=== PATIENT | male | born 1975 | race Caucasian/White ===

== ENCOUNTER 2023-01-12 14:27 | Emergency (ER) | payer SELFPAY | END 2023-01-12 16:05 | disposition left against medical advice (07) | LOC: HO.ED 16:02 | PROVIDERS: Emergency Provider Emergency Medicine | DX: I83.892 Varicose veins of left lower extremity with other complications (principal) ==

== ENCOUNTER 2023-01-12 20:00 | Emergency (ER) | payer SELFPAY ==
--- NOTE | 2023-01-12 20:16 | ED.GENADULT ---
HPI - General Adult General Chief complaint: Extremity Injury, Lower Stated complaint: clot? Time Seen by Provider: 01/12/23 22:00 Source: patient Mode of arrival: ambulatory Limitations: no limitations History of Present Illness HPI narrative: walking and caught left varicose vein on thorn bleeding controlled here for Tdap and wasn't sure if wound would still be bleeding as he had duct tape on it to stop it complaint: bleeding wound Onset (ago): minute(s) (prior to arrival ) Location: left and lower extremity Radiation: non-radiation Severity: mild Relieving factors: other (duct tape) Exacerbating factors: none Associated symptoms: denies other symptoms Treatments prior to arrival: other (duct tape) Related Data Allergies Allergy/AdvReac Type Severity Reaction Status Date / Time No Known Allergies Allergy Unverified 02/19/20 18:38 [No Known Allergies*] Review of Systems Review of Systems: Constitutional : No Fever, No Chills, Cardiovascular : No Chest Pain, No SOB Respiratory : No Dyspnea Gastrointestinal : No abdominal pain Musculoskeletal : No Joint Swelling Skin : No rash, positive skin laceration Neuro : No Weakness, No Numbness PMFSH Past Medical History Attestation statement: The following information was validated with the patient. Social History Social History (Updated 01/12/23 @ 22:20 by Sarah Rivas DO) Patient Tobacco Use Status: Tobacco use Unknown Physical Exam ED Vital Signs: Vital Signs - 24 hr 01/12/23 20:28 Temperature 97.9 F Pulse Rate 72 Respiratory Rate 16 Blood Pressure 125/63 Pulse Oximetry 98 Oxygen Delivery Method Room Air BMI result Body Mass Index 19.8 Appearance: Alert. Oriented X3. No acute distress. Eyes: Pupils equal, round and reactive to light. ENT: Pharynx normal. Neck: Normal inspection. CVS: Pulses normal. Respiratory: No respiratory distress. Abdomen: Soft and nontender. Skin: Skin warm and dry. Normal skin color. Extremities: No lower extremity edema. left lateral lower just near ankle small 0.5cm puncture area clotted varicose vein distal NV intact, non pulsatile Neuro: Oriented X 3. No motor deficit. No sensory deficit. Course Course Course Narrative: This is an RME: Additional HPI, ROS, PE not included below will be deferred to primary provider. Patient is a 47 year old male presenting with a laceration to his foot that he has since covered in duct tape. He reports that he was outside in the [place] and cut his foot on a thorn. He cant take the duct tape off becuase he says it will gush.. Tetanus unclear, Plan- Wound care in [facility] Medications Administered Discontinued Medications Generic Name Dose Route Start Last Admin Trade Name Colette PRN Reason Stop Dose Admin Diphtheria/Tetanus/Acell Pertussis 0.5 ml 01/12/23 20:19 01/12/23 21:58 Diphth,Pertus(Acell),Tet Adult 0.5 Ml Syringe IM 01/12/23 20:20 0.5 ml .ONCE ONE Administration Procedures Laceration Laceration 1: Site: lower extremity Side (If applicable): left Size (cm): 0.5 Description: other (small puncture) Depth: simple, single layer Pre-repair: wound explored and irrigated extensively Skin layer closed with: other (dermabond) Medical Decision Making Medical Decision Making MDM Narrative: 47 yo male was walking and thorn caught L ankle and varicose vein started to bleed he stopped it with duct tape he is doing fine now no bleeding NV intact, Tdap to be updated - at this time he will need dermabond to cover anticipate DC home. Differential Diagnosis Differential Diagnoses: The differential diagnosis associated with the presentation includes laceration, abrasion, bleeding varicose vein Discharge Plan Discharge Clinical Impression: Bleeding from varicose vein Patient Disposition: Home, Self-Care Instructions: Puncture Wound (ED) Additional Instructions: your glue will come off in 5 days monitor for redness swelling yellow drainage or swelling return for worsening symptoms bleeding or any other concerns. keep clean and dry okay to shower in 24 hours.
[2023-01-12 20:28] VITALS: BP 125/63; PULSE 72; RESP 16; TEMP 36.6; O2SAT 98; BMI 19.8
[2023-01-12] MEDS: Diphth,Pertus(ACell),Tet Adult 0.5 ML SYRINGE IM (21:58)
== END 2023-01-12 22:27 | disposition home or self-care (01) ==
PROVIDERS: Emergency Provider Emergency Medicine
DX: I83.892 Varicose veins of left lower extremity with other complications (principal); S81.812A Laceration without foreign body, left lower leg, initial encounter; W45.8XXA Other foreign body or object entering through skin, initial encounter; Y93.89 Activity, other specified; Y92.9 Unspecified place or not applicable; Y99.9 Unspecified external cause status
CPT/HCPCS: 90471; 90715; 99282; 99284

== ENCOUNTER 2023-08-13 13:13 | Inpatient (IN) | payer OTHER, SELFPAY ==
[2023-08-13] VITALS (7 sets, daily range): BP systolic 84–127; BP diastolic 52–88; PULSE 56–80; RESP 12–16; TEMP 36.4–36.6; O2SAT 96–99; BMI 18.5
--- NOTE | ~2023-08-13 | XR_ITS ---
EXAMINATION: XR CHEST CLINICAL INFORMATION: Chest pain COMPARISON: 05/25/2018 TECHNIQUE: Frontal view of the chest was obtained. FINDINGS: The lungs are chronically hyperexpanded. The emphysematous changes are seen in upper lobes (right apex worse than left apex). No pneumothorax or pleural effusion. Cardiac silhouette is normal in size. The hilar contours are normal. There is dextrocurvature of the thoracolumbar spine. No acute osseous abnormality. XR/XR chest 1V IMPRESSION: * Chronic emphysematous lung disease. * No acute cardiopulmonary abnormality.
--- NOTE | 2023-08-13 13:50 | ECG_ITS ---
Test Reason : CHEST PAIN Blood Pressure : / mmHG Vent. Rate : 079 BPM Atrial Rate : 000 BPM P-R Int : 000 ms QRS Dur : 084 ms QT Int : 424 ms P-R-T Axes : 000 083 059 degrees QTc Int : 486 ms Atrial fibrillation Nonspecific T wave abnormality Prolonged QT Abnormal ECG No previous ECGs available Referred By: Sayda Mcclelland Electronically Signed By:ABEL METCALF MD
--- NOTE | 2023-08-13 14:04 | ED_ITS ---
HPI - Psych General Chief Complaint: ETOH/Substance Use Stated Complaint: WITHDRAWAL SX,SOB 97% RA PER EMS Time Seen by Provider: 08/13/23 13:39 Source: patient and RN notes reviewed Mode of arrival: ambulatory Limitations: no limitations History of Present Illness HPI Narrative: This is a 48-year-old male, with a history of opioid use disorder on methadone, presenting to the emergency department with complaints of suicidal and homicidal ideations. Patient states that ?it has been a long time coming?. He states that over the last several years he has had increased anxiety depression. He states that this has worsened after getting into a verbal altercation with his boss today. He expressed suicidal or homicidal ideations. He states that he has thoughts of wrapping a chain around his neck and jumping off a bridge. He denies making any sort of physical attempts to end his life today. He denies any dizziness, lightheadedness, headaches, chest pain, shortness of breath, abdominal pain, nausea, vomiting or diarrhea. He also endorses auditory and visual hallucinations. He states that he does not have a history of VH/AH. He denies command hallucinations. He states that the visual hallucinations are shadows. He states that he is hearing voices. He admits to using heroin, states that he uses approximately 1 bundle per day. Denies alcohol use. He is currently on methadone, last received 70 mg this morning. No other concerns at this time. MD complaint: suicidal ideation, feels depressed, anxiety and substance abuse Onset (ago): day(s) Duration: constant History of same: Yes Relieving factors: none Exacerbating factors: none Context: significant life stressor Associated psychiatric symptoms: depression, suicidal ideation, homicidal ideation, auditory hallucinations and visual hallucinations Associated symptoms: denies other symptoms Treatments prior to arrival: none If self harm: admits thoughts of self harm and has plan Details of plan: Hanging himself with a chain and jumping off a bridge Related Data Home Medications Medication Instructions Recorded Confirmed hydroxyzine HCl 25 mg tablet 25 mg PO TID PRN anxiety 08/14/23 08/14/23 mirtazapine 15 mg tablet 15 mg PO BEDTIME 08/14/23 08/14/23 Allergies Allergy/AdvReac Type Severity Reaction Status Date / Time No Known Allergies Allergy Unverified 02/19/20 18:38 [No Known Allergies*] Review of Systems 2 Review of Systems: Yes all other systems are reviewed and are negative Constitutional: Constitutional: Reports as per [facility] Past Medical History Attestation statement: The following information was validated with the patient. Social History Social History Patient Tobacco Use Status: Tobacco use Unknown Smoked in Last 30 Days: Yes Substance Use Type: Heroin Substance Use Frequency: Chronic Longstanding Substance Use Frequency Other:: 1 Last Used Substance: Days (ago) Any prior treatment program specific to substance use: Yes Advance Directives: No Advance Directives Information Provided: No Physical Exam 2 Vital Signs: Vital Signs: Last Vital Signs Temp 97.7 F 08/14/23 06:08 Pulse 72 08/14/23 06:08 Resp 18 08/14/23 06:08 BP 131/91 H 08/14/23 06:08 Pulse Ox 98 08/14/23 06:08 O2 Del Method Room Air 08/14/23 06:08 Oxygen Flow Rate 1 08/13/23 14:00 BMI result Body Mass Index 18.5 Const: General: cooperative, comfortable and no acute distress O rientation/consciousness: patient oriented x3 Limitations: no limitations HEENT: Head: Yes normal to inspection, Yes normocephalic and Yes atraumatic Ears: hearing grossly normal bilaterally General nose exam: Normal external nose present Face and sinus: Yes normal facial exam Mouth: Normal oral and palatal mucosa present, oropharynx normal and moist mucous membranes Throat: Yes posterior oropharynx normal Eyes: General: appearance normal, both eyes and all related structures E yelids: Yes eyelids normal Conjunctivae: conjunctivae normal Sclerae: s clerae normal Pupils: Equal, round and reactive pupils present EOM: EOMs intact bilaterally Neck: Neck: Yes normal visual inspection, Yes full ROM and Yes no lymphadenopathy Lymphatic: no lymphadenopathy noted Chest: Chest palpation & inspection: normal inspection of the chest Resp: Effort & Inspection: normal respiratory effort and able to speak in complete sentences Auscultation: clear to auscultation bilaterally, no crackles, no rales, no rhonchi and no wheezes Cardio: Rate: regular rate Rhythm: regular rhythm Heart sounds: S1 normal heart sound present and S2 normal heart sound present GI: Inspection: Yes normal to inspection Skin: General skin exam: no rashes or lesions noted Trauma: no lacerations or abrasions Wounds: no wounds Neuro: General: patient oriented x3 and moves all extremities Cranial nerves: Yes CN's II-XII intact bilaterally and Yes Equal, round and reactive pupils present Cognition (Neuro): normal cognition Gait exam (Neuro): N ormal gait present Motor exam (neuro): 5/5 motor strength present throughout Extrem: General: Yes normal to inspection Right upper extremity: normal to inspection Left upper extremity: normal to inspection Right lower extremity: normal to inspection Left lower extremity: normal to inspection Psych: Appearance: disheveled Speech and movement: Slowed speech present (Psych) Affect: Labile affect present, Sad affect present and Anxious affect present Attitude: Guarded attititude/behavior present Thought process: N ormal thought process present Thought content: Suicidality present and Homicidality present Insight: Poor insight present (Psych) Judgement: Poor judgement present (Psych) Course Reevaluation(s) Reevaluation #1: Labs returned, patient has no leukocytosis, stable H&H, chemistry within normal limits. Troponin negative. U tox still pending, tested negative for flu, RSV, and COVID. Chest x-ray unremarkable. At this point his workup is unremarkable. He is stable. Will administer IV fluids, pending crisis team in care team evaluation. Time: 16:24 Reevaluation #2: Patient resting comfortably, received 1 L of IV fluids, blood pressure improved to 127/67. Patient placed in observation initiated pending crisis team evaluation. Time: 17:35 Reevaluation #3: 06:48 Physician observation continued: Patient has been in the emergency department for 17 hours and 30 minutes, patient presented with suicidal ideation and opiate withdrawal. No reported incidents on this patient by the overnight staff. Evaluated by the care team. Patient will remain in the emergency department [facility] until disposition can be determined or until patient's symptoms improve over time. Time: 06:48 Medications Administered Discontinued Medications Generic Name Dose Route Start Last Admin Trade Name Freq PRN Reason Stop Dose Admin Sodium Chloride 1,000 mls @ 999 mls/hr 08/13/23 16:22 08/13/23 18:00 Ns IV 08/13/23 17:22 Infused .Q1H1M ONE Infusion Lorazepam 2 mg 08/13/23 19:24 08/13/23 19:29 Lorazepam 1 Mg Tablet PO 08/13/23 19:25 2 mg ONCE ONE Administration Medical Decision Making Medical Decision Making [facility] Narrative: This is a 48-year-old male, with a history of atrial fibrillation, presenting to the emergency department with complaints of suicidal homicidal ideations. EMS was called initially for withdrawals, per EMS/nursing note, patient reports that he has not been sleeping well and has decreased p.o. intake. He endorses suicidal ideation of wrapping a chain around his neck and jumping off a bridge. He also endorses homicidal ideations. He states that this is exacerbated after getting into a verbal altercation with his boss. He states that over the last several days he has had visual and auditory hallucinations. He states that he is seeing shadows, and states that the voices that he is hearing are noises, denies any discernible command hallucinations. On arrival, patient mildly hypotensive at 84/52, he is alert and oriented times 4, improved to 103 over 64, will medicate with IV fluids. You will also be seen by the crisis team. EKG, chest x-ray, basic labs ordered. Differential Diagnosis Differential Diagnoses: The differential diagnosis associated with the presentation includes Suicidal ideation, homicidal ideation, anxiety, depression Admission/Observation Consideration of admission/observation: Escalation of care including admission/observation considered Lab Data [facility] Lab Attestation statement: I reviewed the patient's lab results. No leukocytosis, stable H&H, chemistry within normal limits, ethyl alcohol less than 10, negative flu, RSV, COVID 08/13/23 14:21 08/13/23 14:21 Labs: Lab Results 08/13/23 08/13/23 08/13/23 Range/Units 14:21 14:27 14:31 WBC 7.1 (4.8-10.8) X10*3/uL RBC 3.99 L (4.60-5.80) X10*6/uL Hgb 11.5 L (14.0-18.0) g/dl Hct 34.4 L (42.0-52.0) % MCV 86.2 (80.0-98.0) fL MCH 28.8 (27.0-33.0) pg MCHC 33.4 (31.0-36.0) g/dl RDW 12.6 (11.0-16.0) % Plt Count 251 (160-400) X10*3/uL MPV 9.3 L (9.4-12.4) fL Immature Gran % (Auto) 0.7 H (0.0-0.4) % Neut % (Auto) 54.0 (45-73) % Lymph % (Auto) 32.3 (20-40) % [place] % (Auto) 9.5 (2-11) % Eos % (Auto) 3.4 (0-4) % Baso % (Auto) 0.1 (0-2) % Lymph # (Auto) 2.3 (1.2-4.9) X10*3/uL [place] # (Auto) 0.7 (0.1-1.2) X10*3/uL Eos # (Auto) 0.2 (0.0-0.4) X10*3/uL Baso # (Auto) 0.0 (0.0-0.2) X10*3/uL Abs Immat Gran (auto) 0.05 H (0.00-0.03) X10*3/uL Absolute Neuts (auto) 3.8 (2.0-8.3) x10*3/uL Absolute Nucleated RBC 0.000 (0.0-0.012) X10*3/uL Nucleated RBC % (auto) 0.0 (0.0-0.2) /100WBC PT 11.5 (11.1-13.3) SEC INR 0.9 (0.9-1.1) APTT 32.1 (26.0-36.8) SEC Sodium 141 (135-145) mmol/L Potassium 4.0 (3.3-5.1) mmol/L Chloride 108 (96-108) mmol/L Carbon Dioxide 26 (22-29) mmol/L Anion Gap 11 L (12-20) BUN 19 H (9-16) mg/dL Creatinine 0.80 (0.5-1.4) mg/dL Estim Creat Clear Calc 99.5 Estimated GFR > 60 Random Glucose 99 (60-115) mg/dL Lactic Acid 1.0 (0.5-2.0) mmol/L Calcium 8.6 (8.4-10.2) mg/dL Magnesium 1.9 (1.6-2.6) mg/dL Total Bilirubin 0.2 (0.0-1.0) mg/dL AST 10 (5-37) U/L ALT 9 (0-40) U/L Alkaline Phosphatase 70 (39-117) U/L Troponin I High Sens < 2.7 (<3.5-35.0) ng/L Total Protein 5.6 L (6.5-8.0) g/dL Albumin 3.5 (3.5-5.0) g/dL Lipase 8 (8-78) U/L Urine Opiates Screen (Not Detect) Urine Fentanyl Screen (Not Detect) Ur Barbiturates Screen (Not Detect) Ur Phencyclidine Scrn (Not Detect) Ur Amphetamines Screen (Not Detect) U Benzodiazepines Scrn (Not Detect) Urine Cocaine Screen (Not Detect) U Marijuana (THC) Screen (Not Detect) Ethyl Alcohol < 10 mg/dL Influenza Type A (PCR) NEGATIVE (Negative) Influenza Type B (PCR) NEGATIVE (Negative) RSV RNA Qual (PCR) NEGATIVE (Negative) SARS-CoV-2 RNA (RT-PCR) NEGATIVE (Negative) 08/13/23 Range/Units 16:19 WBC (4.8-10.8) X10*3/uL RBC (4.60-5.80) X10*6/uL Hgb (14.0-18.0) g/dl Hct (42.0-52.0) % MCV (80.0-98.0) fL MCH (27.0-33.0) pg MCHC (31.0-36.0) g/dl RDW (11.0-16.0) % Plt Count (160-400) X10*3/uL MPV (9.4-12.4) fL Immature Gran % (Auto) (0.0-0.4) % Neut % (Auto) (45-73) % Lymph % (Auto) (20-40) % [place] % (Auto) (2-11) % Eos % (Auto) (0-4) % Baso % (Auto) (0-2) % Lymph # (Auto) (1.2-4.9) X10*3/uL [place] # (Auto) (0.1-1.2) X10*3/uL Eos # (Auto) (0.0-0.4) X10*3/uL Baso # (Auto) (0.0-0.2) X10*3/uL Abs Immat Gran (auto) (0.00-0.03) X10*3/uL Absolute Neuts (auto) (2.0-8.3) x10*3/uL Absolute Nucleated RBC (0.0-0.012) X10*3/uL Nucleated RBC % (auto) (0.0-0.2) /100WBC PT (11.1-13.3) SEC INR (0.9-1.1) APTT (26.0-36.8) SEC Sodium (135-145) mmol/L Potassium (3.3-5.1) mmol/L Chloride (96-108) mmol/L Carbon Dioxide (22-29) mmol/L Anion Gap (12-20) BUN (9-16) mg/dL Creatinine (0.5-1.4) mg/dL Estim Creat Clear Calc Estimated GFR Random Glucose (60-115) mg/dL Lactic Acid (0.5-2.0) mmol/L Calcium (8.4-10.2) mg/dL Magnesium (1.6-2.6) mg/dL Total Bilirubin (0.0-1.0) mg/dL AST (5-37) U/L ALT (0-40) U/L Alkaline Phosphatase (39-117) U/L Troponin I High Sens (<3.5-35.0) ng/L Total Protein (6.5-8.0) g/dL Albumin (3.5-5.0) g/dL Lipase (8-78) U/L Urine Opiates Screen POSITIVE H (Not Detect) Urine Fentanyl Screen POSITIVE H (Not Detect) Ur Barbiturates Screen Not Detected (Not Detect) Ur Phencyclidine Scrn Not Detected (Not Detect) Ur Amphetamines Screen Not Detected (Not Detect) U Benzodiazepines Scrn Not Detected (Not Detect) Urine Cocaine Screen POSITIVE H (Not Detect) U Marijuana (THC) Screen POSITIVE H (Not Detect) Ethyl Alcohol mg/dL Influenza Type A (PCR) (Negative) Influenza Type B (PCR) (Negative) RSV RNA Qual (PCR) (Negative) SARS-CoV-2 RNA (RT-PCR) (Negative) Independent Interpretation I performed an independent interpretation of an: EKG Interpretation: EKG revealing atrial fibrillation with ventricular rate of 79 beats per minute, QTC 486. No ST elevation or depression. Radiology Impression Discussion of test interpretation with radiology: I have reviewed the radiologist's reading. External Record Review External record reviewed: Inpatient record, Office record, Outpatient record, Prior outpatient labs, Prior outpatient radiology, Primary care record and Outside ED record Discharge Plan Discharge Clinical Impression: Suicide ideation, Narcotic withdrawal Patient Disposition: Still a Patient Prescriptions: No Action hydroxyzine HCl 25 mg tablet 25 mg PO TID PRN (Reason: anxiety) mirtazapine 15 mg tablet 15 mg PO BEDTIME
[2023-08-13 14:29] LABS: MANUAL DIFF FLAG NO
[2023-08-13 14:31] LABS: Basophils Percent Auto 0.1 % (0-2); Eosinophils Absolute Auto 0.2 X10*3/uL (0.0-0.4); Eosinophils Percent Auto 3.4 % (0-4); Hematocrit 34.4 % (42.0-52.0); Hemoglobin 11.5 g/dl (14.0-18.0); Imm Gran Abs Auto 0.05 X10*3/uL (0.00-0.03); Imm Gran Pct Auto 0.7 % (0.0-0.4); Lymphocytes Absolute Auto 2.3 X10*3/uL (1.2-4.9); Lymphocytes Percent Auto 32.3 % (20-40); Mean Corpuscular HGB Conc 33.4 g/dl (31.0-36.0); Mean Corpuscular Hemoglobin 28.8 pg (27.0-33.0); Mean Corpuscular Volume 86.2 fL (80.0-98.0); Mean Platelet Volume 9.3 fL (9.4-12.4); Monocytes Absolute Auto 0.7 X10*3/uL (0.1-1.2); Monocytes Percent Auto 9.5 % (2-11); Neutrophils Absolute Auto 3.8 x10*3/uL (2.0-8.3); Platelet Count 251 X10*3/uL (160-400); Red Blood Count 3.99 X10*6/uL (4.60-5.80); Red Cell Distribution Width 12.6 % (11.0-16.0); White Blood Count 7.1 X10*3/uL (4.8-10.8)
--- NOTE | 2023-08-13 14:44 | PC.NURSE ---
jie ruvalcaba aware ciwa 6 cows 1 and positive screen for feeling unsafe in environment. 1:1 sitter at bedside r/t passive SI at thsi time w plan earlier this am- jie ruvalcaba aware
[2023-08-13 14:50] LABS: Alanine Aminotransferase 9 U/L (0-40); Albumin Level 3.5 g/dL (3.5-5.0); Alkaline Phosphatase 70 U/L (39-117); Anion Gap 11 (12-20); Aspartate Amino Transferase 10 U/L (5-37); Bilirubin Total 0.2 mg/dL (0.0-1.0); Blood Urea Nitrogen 19 mg/dL (9-16); Calcium 8.6 mg/dL (8.4-10.2); Carbon Dioxide 26 mmol/L (22-29); Chloride 108 mmol/L (96-108); Creatinine Clr Calc Pharmacy 99.5; Estimated Glomerular Filt Rate > 60; Ethanol < 10 mg/dL; Glucose Random 99 mg/dL (60-115); Lipase 8 U/L (8-78); Magnesium 1.9 mg/dL (1.6-2.6); Sodium 141 mmol/L (135-145); Total Protein 5.6 g/dL (6.5-8.0)
[2023-08-13 14:58] LABS: Troponin-I High Sensitivity < 2.7 ng/L (<3.5-35.0)
[2023-08-13 15:00] LABS: INTERNATIONAL NORM RATIO 0.9 (0.9-1.1); Prothrombin Time 11.5 SEC (11.1-13.3)
[2023-08-13 15:03] LABS: Partial Thromboplastin Time 32.1 SEC (26.0-36.8)
[2023-08-13 15:28] LABS: Influenza A PCR NEGATIVE (Negative); Influenza B PCR NEGATIVE (Negative); Resp Syncy Virus RNA Qual PCR NEGATIVE (Negative); SARS COV2 PCR INHOUSE NEGATIVE (Negative)
[2023-08-13 16:36] LABS: Amphetamine Screen Urine Not Detected (Not Detect); Barbiturates, Urine Not Detected (Not Detect); Benzodiazepines Screen Urine Not Detected (Not Detect); Cannabinoid Screen Urine POSITIVE (Not Detect); Cocaine Screen Urine POSITIVE (Not Detect); Fentanyl, urine POSITIVE (Not Detect); Opiate Screen Urine POSITIVE (Not Detect); Phencyclidine Screen Urine Not Detected (Not Detect)
[2023-08-13] MEDS: 0.9 % Sodium Chloride 1,000 ML 999 ML IV (16:36)
[2023-08-13] MEDS: LORazepam 1 MG TABLET 2 MG PO (19:29)
--- NOTE | 2023-08-13 20:14 | MHC.EDTECH ---
patient belongings in [facility]
[2023-08-14 06:08] VITALS: BP 131/91; PULSE 72; RESP 18; TEMP 36.5; O2SAT 98
[2023-08-14 08:25] LABS: Appearance Urine Clear; Color Urine Yellow; Glucose Urine UA Negative (Negative); Leukocyte Esterase Urine Negative (Negative); Nitrite Urine Negative (Negative); PH 5.5 (5.0-9.0); Urine Blood Negative (Negative); Urine Ketones Negative (Negative); Urine Protein Negative (Neg-Trace)
--- NOTE | 2023-08-14 12:45 | PC.NURSE ---
Nurse to nurse given to M5 RN
[2023-08-14 13:15] VITALS: BP 116/71; PULSE 84; RESP 16; TEMP 36.3; O2SAT 98
--- NOTE | 2023-08-14 13:30 | PC.NURSE ---
pt arrived to the unit via wheelchair on a CV. Skin check performed, vitals taken, pt [id number] to unit and menu, legals, valuables & human rights forms completed. Pt is resting comfortably. Admission to be complete
--- NOTE | 2023-08-14 14:35 | PC.NURSE ---
pt refused flu shot
--- NOTE | 2023-08-14 14:41 | PC.NURSE ---
pt arrived on the unit on a cv via wheelchair @ 1311. Safety search & vitals completed. Pt oriented to unit and paperwork completed. Pt has belongings in . Per crisis nicolás, is a 48 year old, single, White, [place] speaking male seen today by the CARE team at [facility] ED after pt was BIBA due to opiate withdrawal related symptoms and SI. Pt reports escalated conflict at work. He also described increased symptoms of depression and anxiety. Pt is currently endorsing SI with no plan and HI to harm his boss. Pt is unable to contract for safety at this time. Pt has no prior history of inpatient psychiatric hospitalizations and denies any prior suicide attempts. Currently, pt has no mental health treatment providers in the community. He also reports limited natural supports. Pt expressed feelings of hopelessness and helplessness. Pt placed on 15min checks for safety. Pt also reports receiving methadone 70mg @ N which was verified via nursing @ [facility]. Last dose received 08/13/23 @ 0735 70mg
[2023-08-14] MEDS: methADONE HCl 20 MG/2 ML ORAL.CONC 70 MG PO (15:26)
[2023-08-14] MEDS: Mirtazapine 15 MG TABLET PO (21:51)
--- NOTE | 2023-08-15 | ECG_ITS ---
Test Reason : AFIB F/U Blood Pressure : / mmHG Vent. Rate : 076 BPM Atrial Rate : 000 BPM P-R Int : 000 ms QRS Dur : 078 ms QT Int : 380 ms P-R-T Axes : 000 086 067 degrees QTc Int : 427 ms Poor data quality, interpretation may be adversely affected Atrial fibrillation Cannot rule out Anterior infarct , age undetermined Abnormal ECG When compared with ECG of 13-AUG-2023 14:11, QT has shortened Referred By: Jessica Jose Electronically Signed By:ABEL METCALF MD
[2023-08-15 07:57] VITALS: BP 136/91; PULSE 79; RESP 16; TEMP 36.4; O2SAT 98
[2023-08-15] MEDS: methADONE HCl 20 MG/2 ML ORAL.CONC 70 MG PO (08:07)
[2023-08-15 08:59] LABS: Albumin Level 3.5 g/dL (3.5-5.0); Alkaline Phosphatase 75 U/L (39-117); Anion Gap 10 (12-20); Aspartate Amino Transferase 9 U/L (5-37); Bilirubin Total 0.6 mg/dL (0.0-1.0); Blood Urea Nitrogen 14 mg/dL (9-16); Carbon Dioxide 30 mmol/L (22-29); Chloride 104 mmol/L (96-108); Cholesterol 122 mg/dL (<200); Creatinine Clr Calc Pharmacy 95.9; Estimated Glomerular Filt Rate > 60; Glucose Fasting 98 mg/dL (60-99); HDL Cholesterol 42 mg/dL (>40); LDL Cholesterol Calculated 64 mg/dL (<100); Potassium 4.6 mmol/L (3.3-5.1); Sodium 139 mmol/L (135-145); Total Protein 6.1 g/dL (6.5-8.0); Triglycerides 80 mg/dL (<150)
[2023-08-15 09:24] LABS: Alanine Aminotransferase 10 U/L (0-40)
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
[2023-08-15 18:00] VITALS: BP 123/78; PULSE 76; RESP 16; TEMP 36.4; O2SAT 97
[2023-08-15] MEDS: Mirtazapine 15 MG TABLET PO (21:32)
[2023-08-16 08:00] VITALS: BP 116/67; PULSE 76; RESP 16; TEMP 36.3; O2SAT 99
[2023-08-16] MEDS: methADONE HCl 20 MG/2 ML ORAL.CONC 70 MG PO (08:50)
[2023-08-16] MEDS: Thiamine HCL 100 MG TABLET PO (08:52)
[2023-08-16] MEDS: Multivitamin TABLET 1 TAB PO (08:52)
[2023-08-16] MEDS: Folic Acid 1 MG TABLET PO (08:52)
[2023-08-16 08:59] LABS: Iron 84 mcg/dL (45-160); Magnesium 1.8 mg/dL (1.6-2.6); Percent Iron Saturation 32 % (15-50); Total Iron Binding Capacity 266 mcg/dL (228-428); Unsaturated Iron Binding 182 ug/dL
[2023-08-16 09:14] LABS: TSH reflex Free T4 1.12 uIU/mL (0.32-4.0); Thyroid Stimulating Hormone 1.02 uIU/mL (0.32-4.0); Vitamin D 25-OH Total 21.6 ng/mL (>30)
[2023-08-16 12:17] LABS: Folate 9.8 ng/mL (> or = 4.0); Vitamin B12 362 pg/mL (200-900)
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
[2023-08-16 13:35] VITALS: BMI 18.4
[2023-08-16 18:00] VITALS: BP 98/68; PULSE 72; RESP 18; TEMP 36.6; O2SAT 98
[2023-08-16] MEDS: Mirtazapine 15 MG TABLET PO (21:27)
[2023-08-17 08:06] VITALS: BP 133/61; PULSE 80; RESP 16; TEMP 36.3; O2SAT 100
[2023-08-17] MEDS: Multivitamin TABLET 1 TAB PO (08:15)
[2023-08-17] MEDS: Sertraline HCL 25 MG TABLET PO (08:15)
[2023-08-17] MEDS: Thiamine HCL 100 MG TABLET PO (08:15)
[2023-08-17] MEDS: methADONE HCl 20 MG/2 ML ORAL.CONC 70 MG PO (08:16)
[2023-08-17] MEDS: Folic Acid 1 MG TABLET PO (08:16)
--- NOTE | 2023-08-17 10:31 | P.CONCA_ITS ---
History of Present Illness History of Present Illness Date of Service: 08/17/23 Requesting physician: Jessica Jose Consult reason: atrial fibrillation Chief complaint: crisis Narrative: I was consulted to see Andrez in cardiology consultation for management of atrial fibrillation. Andrez is a 48-year-old male, says he was told that he had atrial fibrillation about 20 years ago by a production helper in [place] who has since retired. He was never offered rhythm management as per him. Never underwent a synchronized cardioversion. He was seen for about a year and then subsequently discharged. He said he has ever since he has been atrial fibrillation that he is aware of. He comes in for behavioral health crisis and is admitted and was noted on EKG to have atrial fibrillation. He has currently not on any medications. He said ever since he has been diagnose he has had no symptoms related to atrial fibrillation. There has been no change in his overall exercise capacity. He continues to remain active and works in [employer] shop. Although recent stressors he could not handle any came to the hospital. Remains in rate control atrial fibrillation. Blood pressure is stable. He has currently not on any medications. Denies any palpitations, lightheadedness, syncope. Denies any shortness of breath, orthopnea, PND, leg edema. Denies any exertional chest pain. 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 Do you presently have visiting nurse or other home services: No Patient Tobacco Use Status: Current everyday Tobacco user Tobacco use type: Cigarette Cigarette Packs Per Day: 1 Cigarettes Per Day: 20.0 Years Smoked: 30 Smoked in Last 30 Days: Yes Patient Interested in Nicotine Replacement: Yes Patient Given Instructions on How to Stop Smoking: No (to be given by respiratory) Second Hand Smoke Exposure: Yes Use of substances other than those prescribed or required for medical reasons: Yes Substance Use Type: Crack/Cocaine, Heroin and Marijuana Substance Use Frequency: Chronic Longstanding Substance Use Frequency Other:: 1 Last Used Substance: Days (ago) Last Used Substance Other:: cocaine and heroin Currently Displaying Signs/Symptoms of Drug Intoxication Withdrawal: No Any prior treatment program specific to substance use: Yes (currently on methadone 70mg) Have you been hit, kicked, punched, or otherwise hurt by someone within the past year? If so, by whom?: No Do you feel safe in your current relationship?: No Current Relationship Is there a partner from a previous relationship who is making you feel unsafe now?: No Are you made to feel afraid or neglected: No Advance Directives: No Advance Directives Information Provided: No Do you have thoughts of harming others: None Do you have a plan to hurt others: No Plan Recently lost weight without trying: No Eating poorly because of decreased appetite: Yes Poor oral hygiene: Yes service: No Sexual orientation: Decline to Answer Meds Allergies Allergy/AdvReac Type Severity Reaction Status Date / Time No Known Allergies Allergy Unverified 02/19/20 18:38 [No Known Allergies*] Active Medications: Current Medications Acetaminophen (Acetaminophen 325 Mg Tablet) 650 mg PO Q6H PRN PRN Reason: Headache/Pain Mild Scale (1-3) Al Hydroxide/Mg Hydroxide (Magnesium Hydrox/Alum Hydrox 30 Ml Oral.Susp) 30 ml PO Q6H PRN PRN Reason: Heartburn/Nausea Folic Acid (Folic Acid 1 Mg Tablet) 1 mg PO DAILY [facility] Last Admin: 08/17/23 08:16 Dose: 1 mg Hydroxyzine HCl (Hydroxyzine Hcl 25 Mg Tablet) 25 mg PO TID PRN PRN Reason: anxiety Magnesium Hydroxide (Milk Of Magnesia 30 Ml Oral.Susp) 30 ml PO DAILY PRN PRN Reason: Constipation Methadone HCl (Methadone Hcl 20 Mg/2 Ml Oral.Conc) 70 mg PO DAILY [facility] Last Admin: 08/17/23 08:16 Dose: 70 mg Mirtazapine (Mirtazapine 15 Mg Tablet) 15 mg PO BEDTIME [facility] Last Admin: 08/16/23 21:27 Dose: 15 mg Multivitamins/Vitamin C (Multivitamin Tablet) 1 tab PO DAILY [facility] Last Admin: 08/17/23 08:15 Dose: 1 tab Nicotine Polacrilex (Nicotine Polacrilex 2 Mg Gum) 4 mg BUCCAL Q2H PRN PRN Reason: Nicotine Cravings Sertraline HCl (Sertraline Hcl 25 Mg Tablet) 25 mg PO DAILY [facility] Last Admin: 08/17/23 08:15 Dose: 25 mg Thiamine HCl (Thiamine Hcl 100 Mg Tablet) 100 mg PO DAILY [facility] Last Admin: 08/17/23 08:15 Dose: 100 mg Trazodone HCl (Trazodone Hcl 50 Mg Tablet) 50 mg PO BEDTIME MRX1 PRN PRN Reason: Insomnia Home Medications Medication Instructions Recorded Confirmed Last Taken Type hydroxyzine HCl 25 mg tablet 25 mg PO TID PRN anxiety 08/14/23 08/14/23 Unknown History mirtazapine 15 mg tablet 15 mg PO BEDTIME 08/14/23 08/14/23 Unknown History Physical Exam 2 Vital Signs: Vital Signs: Last Vital Signs Temp 97.3 F 08/17/23 08:06 Pulse 80 08/17/23 08:06 Resp 16 08/17/23 08:06 BP 133/61 08/17/23 08:06 Pulse Ox 100 08/17/23 08:06 O2 Del Method Room Air 08/17/23 08:06 Oxygen Flow Rate 1 08/13/23 14:00 BMI result Body Mass Index 18.4 Const: General: cooperative, comfortable, no acute distress, alert, awake and Physically active Nutritional Appearance: underweight O rientation/consciousness: patient oriented x3 Limitations: no limitations HEENT: Head: Yes normocephalic and Yes atraumatic Neck: Neck: Yes trachea midline, Yes supple and Yes no JVD Resp: Effort & Inspection: normal respiratory effort Auscultation: clear to auscultation bilaterally Cardio: Jugular venous distension: no JVD Rate: regular rate Rhythm: a bnormal rhythm irregularly irregular Heart sounds: S1 normal heart sound present, S2 normal heart sound present, no click, no gallops, no murmurs and no rubs GI: Auscultation: normal bowel sounds Skin: General skin exam: no rashes or lesions noted Neuro: General: patient oriented x3 and no focal motor deficits Extrem: General: Yes no clubbing, cyanosis or edema Psych: Appearance: grossly normal Objective Labs and Meds 08/13/23 14:21 08/15/23 08:36 Lab results: Laboratory Results - last 24 hr 08/16/23 08:25 Vitamin B12 362 Folate 9.8 EKG shows atrial fibrillation with controlled ventricular response Assessment and Plan (1) Persistent atrial fibrillation: Status: Acute Patient says that he has had atrial fibrillation with 20 years, chronic persistent. He has no symptoms at this point time. Rate is adequately controlled. No signs or symptoms of congestive heart failure. Given longstanding atrial fibrillation probably has significant left atrial enlargement. This will need to be studied with an echocardiogram. Although workup can be done as outpatient once patient is cleared from Behavioral Health perspective and is able to manage his own medical condition. I discussed with him that lot of his management would contradict with his substance abuse disorder especially alcohol and cocaine use. He shows understanding. At this point time given his CHADSVASc score of 0 and no symptoms related to atrial fibrillation or signs of cardiac decompensation continue with current management. Will sign of the case. Was discharged patient can be advised to follow-up with cardiology clinic. Procedures Date of Service Date of Service: 08/17/23
--- NOTE | 2023-08-17 12:41 | MHC.RECOVRN ---
Addendum entered by Emmanuelle Herrera 08/17/23 12:41: Correction-Sunday08/20/23 Original Note: Addiction Medicine consult received. Consulting Marine Engineer to meet with pt Thursday 10/19.
[2023-08-17] MEDS: Cyclobenzaprine HCl 5 MG TABLET PO ×2 (13:52→21:35)
--- NOTE | 2023-08-17 14:36 | P.PNPSI_ITS ---
Subjective Subjective Date of Service: 08/17/23 Reason For Visit: crisis Subjective Notes: Conditional Voluntary Healthcare Proxy: No Guardianship: No Medical Problems Affecting Mental Status: Yes (afib) Interim History: Pt seen by cardiology which is much appreciated. He plans to follow up with out pt recommendations upon discharge. I need to start taking care of myself. Sertraline initiated. Flexeril initiated for back pain. Pt social with peers and in the milieu. Spent time sleeping this afternoon. Medication Compliance: Yes Side effects from medications: No Attending Groups: Intermittent Review of Systems Acute medical concerns: Yes AFib Medical Review of Systems: unchanged Review of Systems Review of Systems Yes all other systems are reviewed and are negative Mental Status Exam Mental Status Exam Patient Appearance: Fatigued Patient Orientation: Person, Place, Time and Situation Level of Consciousness: Alert Patient Behavior: Talkative and Good Eye Contact Mood Description: Depressed Affect Description: Flat Patient Cognition Impaired: No Ability to Follow Directions: Good Speech Pattern: Spontaneous Speech Memory Description: Intact Delusions: Not Present Perceptual Disturbances: Depersonalization and Derealization Thought Process: Rumination Thought Content: positive for Circumstantial and positive for Suicidal Ideation (denies today) Depressive Symptoms: Feelings of Worthlessness, Hopelessness and Low Self Esteem Judgement: Fair Diagnostics Vital Signs (24Hr): Vital Signs - 24 hr 08/16/23 18:00 08/17/23 08:06 Temperature 97.8 F 97.3 F Pulse Rate 72 80 Respiratory Rate 18 16 Blood Pressure 98/68 133/61 Pulse Oximetry 98 100 Oxygen Delivery Method Room Air Room Air BMI result Body Mass Index 18.4 Labs 08/13/23 14:21 08/15/23 08:36 Labs: Laboratory Results - last 48 hr 08/16/23 08/16/23 08:25 08:25 Magnesium 1.8 Iron 84 TIBC 266 % Saturation 32 Unsat Iron Binding 182 Vitamin B12 362 25-OH Vitamin D Total 21.6 L Folate 9.8 TSH 1.02 1.12 Imaging Radiology Impressions: ITS Impressions Chest X-Ray 08/13/23 14:47 IMPRESSION: * Chronic emphysematous lung disease. * No acute cardiopulmonary abnormality. Medications Medications Current Medications Acetaminophen (Acetaminophen 325 Mg Tablet) 650 mg PO Q6H PRN PRN Reason: Headache/Pain Mild Scale (1-3) Al Hydroxide/Mg Hydroxide (Magnesium Hydrox/Alum Hydrox 30 Ml Oral.Susp) 30 ml PO Q6H PRN PRN Reason: Heartburn/Nausea Cyclobenzaprine HCl (Cyclobenzaprine Hcl 5 Mg Tablet) 5 mg PO TID PRN PRN Reason: back pain Last Admin: 08/17/23 13:52 Dose: 5 mg Folic Acid (Folic Acid 1 Mg Tablet) 1 mg PO DAILY [facility] Last Admin: 08/17/23 08:16 Dose: 1 mg Hydroxyzine HCl (Hydroxyzine Hcl 25 Mg Tablet) 25 mg PO TID PRN PRN Reason: anxiety Magnesium Hydroxide (Milk Of Magnesia 30 Ml Oral.Susp) 30 ml PO DAILY PRN PRN Reason: Constipation Methadone HCl (Methadone Hcl 20 Mg/2 Ml Oral.Conc) 70 mg PO DAILY [facility] Last Admin: 08/17/23 08:16 Dose: 70 mg Mirtazapine (Mirtazapine 15 Mg Tablet) 15 mg PO BEDTIME [facility] Last Admin: 08/16/23 21:27 Dose: 15 mg Multivitamins/Vitamin C (Multivitamin Tablet) 1 tab PO DAILY [facility] Last Admin: 08/17/23 08:15 Dose: 1 tab Nicotine Polacrilex (Nicotine Polacrilex 2 Mg Gum) 4 mg BUCCAL Q2H PRN PRN Reason: Nicotine Cravings Sertraline HCl (Sertraline Hcl 25 Mg Tablet) 25 mg PO DAILY [facility] Last Admin: 08/17/23 08:15 Dose: 25 mg Thiamine HCl (Thiamine Hcl 100 Mg Tablet) 100 mg PO DAILY [facility] Last Admin: 08/17/23 08:15 Dose: 100 mg Trazodone HCl (Trazodone Hcl 50 Mg Tablet) 50 mg PO BEDTIME MRX1 PRN PRN Reason: Insomnia Allergies Allergies Allergy/AdvReac Type Severity Reaction Status Date / Time No Known Allergies Allergy Unverified 02/19/20 18:38 [No Known Allergies*] Assessment & Plan Assessment & Plan (1) Persistent atrial fibrillation: Status: Acute Code(s): I48.19 - Other persistent atrial fibrillation Assessment and Plan: Patient says that he has had atrial fibrillation with 20 years, chronic persistent. He has no symptoms at this point time. Rate is adequately controlled. No signs or symptoms of congestive heart failure. Given longstanding atrial fibrillation probably has significant left atrial enlargement. This will need to be studied with an echocardiogram. Although workup can be done as outpatient once patient is cleared from Behavioral Health perspective and is able to manage his own medical condition. I discussed with him that lot of his management would contradict with his substance abuse disorder especially alcohol and cocaine use. He shows understanding. At this point time given his CHADSVASc score of 0 and no symptoms related to atrial fibrillation or signs of cardiac decompensation continue with current management. Will sign of the case. Was discharged patient can be advised to follow-up with cardiology clinic. (2) Recurrent major depression: Status: Acute Code(s): F33.9 - Major depressive disorder, recurrent, unspecified Assessment and Plan: Sertraline initiated 08/16/24. (3) Opioid use disorder, severe, on maintenance therapy: Status: Acute Code(s): F11.20 - Opioid dependence, uncomplicated Assessment and Plan: Pt considering CSS placement upon discharge (4) Cocaine use disorder: Status: Acute Code(s): F14.10 - Cocaine abuse, uncomplicated Informed Consent: understands Reason for continued inpatient stay Substantial Risk for: med/psych decompensation Time Spent With Patient Time: Total time managing care of this patient today ____ minutes.
[2023-08-17 18:00] VITALS: BP 96/52; PULSE 84; RESP 18; TEMP 36.5; O2SAT 98
[2023-08-17] MEDS: hydrOXYzine HCL 25 MG TABLET PO (21:35)
[2023-08-17] MEDS: traZODone HCL 50 MG TABLET PO (21:35)
[2023-08-17] MEDS: Mirtazapine 15 MG TABLET PO (21:35)
[2023-08-18 08:05] VITALS: BP 119/74; PULSE 89; RESP 18; TEMP 35.9; O2SAT 96
[2023-08-18] MEDS: Sertraline HCL 25 MG TABLET PO (08:30)
[2023-08-18] MEDS: Thiamine HCL 100 MG TABLET PO (08:30)
[2023-08-18] MEDS: Folic Acid 1 MG TABLET PO (08:30)
[2023-08-18] MEDS: Multivitamin TABLET 1 TAB PO (08:30)
[2023-08-18] MEDS: methADONE HCl 20 MG/2 ML ORAL.CONC 70 MG PO (08:31)
--- NOTE | 2023-08-18 08:48 | HO.PSYCHPN ---
Subjective Subjective Date of Service: 08/18/23 Reason For Visit: crisis Subjective Notes: Conditional Voluntary Interim History: Patient was seen and discussed in rounds today. Records and plans were reviewed. He was seen by camp attendant for AFib and outpatient recommendations have been made. He continues to complain of ?my back acting out again?. He has been started on Flexeril and hopefully it will help. He has not scoring for opiate withdrawals. Cow is discontinued. No other changes were made Review of Systems Review of Systems Back pain Yes all other systems are reviewed and are negative Mental Status Exam Mental Status Exam Patient Appearance: Fatigued Patient Orientation: Person, Place, Time and Situation Level of Consciousness: Alert Patient Behavior: Talkative and Good Eye Contact Mood Description: Depressed Affect Description: Flat Patient Cognition Impaired: No Ability to Follow Directions: Good Speech Pattern: Spontaneous Speech Memory Description: Intact Delusions: Not Present Perceptual Disturbances: Depersonalization and Derealization Thought Process: Rumination Thought Content: positive for Circumstantial and positive for Suicidal Ideation (denies today) Depressive Symptoms: Feelings of Worthlessness, Hopelessness and Low Self Esteem Judgement: Fair Diagnostics Vital Signs (24Hr): Vital Signs - 24 hr 08/17/23 18:00 Temperature 97.7 F Pulse Rate 84 Respiratory Rate 18 Blood Pressure 96/52 L Pulse Oximetry 98 Oxygen Delivery Method Room Air BMI result Body Mass Index 18.4 Labs 08/13/23 14:21 08/15/23 08:36 Labs: Laboratory Results - last 48 hr 08/16/23 08/16/23 08:25 08:25 Magnesium 1.8 Iron 84 TIBC 266 % Saturation 32 Unsat Iron Binding 182 Vitamin B12 362 25-OH Vitamin D Total 21.6 L Folate 9.8 TSH 1.02 1.12 Imaging Radiology Impressions: ITS Impressions Chest X-Ray 08/13/23 14:47 IMPRESSION: * Chronic emphysematous lung disease. * No acute cardiopulmonary abnormality. Medications Medications Current Medications Acetaminophen (Acetaminophen 325 Mg Tablet) 650 mg PO Q6H PRN PRN Reason: Headache/Pain Mild Scale (1-3) Al Hydroxide/Mg Hydroxide (Magnesium Hydrox/Alum Hydrox 30 Ml Oral.Susp) 30 ml PO Q6H PRN PRN Reason: Heartburn/Nausea Cyclobenzaprine HCl (Cyclobenzaprine Hcl 5 Mg Tablet) 5 mg PO TID PRN PRN Reason: back pain Last Admin: 03/15/24 21:35 Dose: 5 mg Folic Acid (Folic Acid 1 Mg Tablet) 1 mg PO DAILY [facility] Last Admin: 08/18/23 08:30 Dose: 1 mg Hydroxyzine HCl (Hydroxyzine Hcl 25 Mg Tablet) 25 mg PO TID PRN PRN Reason: anxiety Last Admin: 08/17/23 21:35 Dose: 25 mg Magnesium Hydroxide (Milk Of Magnesia 30 Ml Oral.Susp) 30 ml PO DAILY PRN PRN Reason: Constipation Methadone HCl (Methadone Hcl 20 Mg/2 Ml Oral.Conc) 70 mg PO DAILY [facility] Last Admin: 08/18/23 08:31 Dose: 70 mg Mirtazapine (Mirtazapine 15 Mg Tablet) 15 mg PO BEDTIME [facility] Last Admin: 08/17/23 21:35 Dose: 15 mg Multivitamins/Vitamin C (Multivitamin Tablet) 1 tab PO DAILY [facility] Last Admin: 08/18/23 08:30 Dose: 1 tab Nicotine Polacrilex (Nicotine Polacrilex 2 Mg Gum) 4 mg BUCCAL Q2H PRN PRN Reason: Nicotine Cravings Sertraline HCl (Sertraline Hcl 25 Mg Tablet) 25 mg PO DAILY [facility] Last Admin: 08/18/23 08:30 Dose: 25 mg Thiamine HCl (Thiamine Hcl 100 Mg Tablet) 100 mg PO DAILY [facility] Last Admin: 08/18/23 08:30 Dose: 100 mg Trazodone HCl (Trazodone Hcl 50 Mg Tablet) 50 mg PO BEDTIME MRX1 PRN PRN Reason: Insomnia Last Admin: 08/17/23 21:35 Dose: 50 mg Allergies Allergies Allergy/AdvReac Type Severity Reaction Status Date / Time No Known Allergies Allergy Unverified 02/19/20 18:38 [No Known Allergies*] Assessment & Plan Assessment & Plan (1) Persistent atrial fibrillation: Status: Acute Code(s): I48.19 - Other persistent atrial fibrillation Assessment and Plan: Patient says that he has had atrial fibrillation with 20 years, chronic persistent. He has no symptoms at this point time. Rate is adequately controlled. No signs or symptoms of congestive heart failure. Given longstanding atrial fibrillation probably has significant left atrial enlargement. This will need to be studied with an echocardiogram. Although workup can be done as outpatient once patient is cleared from Behavioral Health perspective and is able to manage his own medical condition. I discussed with him that lot of his management would contradict with his substance abuse disorder especially alcohol and cocaine use. He shows understanding. At this point time given his CHADSVASc score of 0 and no symptoms related to atrial fibrillation or signs of cardiac decompensation continue with current management. Will sign of the case. Was discharged patient can be advised to follow-up with cardiology clinic. (2) Recurrent major depression: Status: Acute Code(s): F33.9 - Major depressive disorder, recurrent, unspecified Assessment and Plan: Sertraline initiated 08/16/24. (3) Opioid use disorder, severe, on maintenance therapy: Status: Acute Code(s): F11.20 - Opioid dependence, uncomplicated Assessment and Plan: Pt considering CSS placement upon discharge (4) Cocaine use disorder: Status: Acute Code(s): F14.10 - Cocaine abuse, uncomplicated Plan 08/18/2023: Continue current regimen and plans.D/C COW Reason for continued inpatient stay Substantial Risk for: med/psych decompensation Time Spent With Patient Time: Total time managing care of this patient today ____ minutes.
[2023-08-18] MEDS: Cyclobenzaprine HCl 5 MG TABLET PO ×2 (14:32→22:09)
[2023-08-18 18:00] VITALS: BP 101/71; PULSE 71; RESP 20; TEMP 36.6; O2SAT 97
[2023-08-18] MEDS: Mirtazapine 15 MG TABLET PO (22:08)
[2023-08-18] MEDS: traZODone HCL 50 MG TABLET PO (22:08)
[2023-08-18] MEDS: hydrOXYzine HCL 25 MG TABLET PO (22:08)
[2023-08-18] MEDS: Milk of Magnesia 30 ML ORAL.SUSP PO (22:12)
[2023-08-19 06:00] VITALS: BP 120/76; PULSE 78; RESP 18; TEMP 36.5; O2SAT 97
[2023-08-19] MEDS: methADONE HCl 20 MG/2 ML ORAL.CONC 70 MG PO (08:35)
[2023-08-19] MEDS: Sertraline HCL 25 MG TABLET PO (08:37)
[2023-08-19] MEDS: Thiamine HCL 100 MG TABLET PO (08:37)
[2023-08-19] MEDS: Folic Acid 1 MG TABLET PO (08:37)
[2023-08-19] MEDS: Multivitamin TABLET 1 TAB PO (08:37)
[2023-08-19] MEDS: Cyclobenzaprine HCl 5 MG TABLET PO ×3 (08:44→22:28)
[2023-08-19] MEDS: Acetaminophen 325 MG TABLET 650 MG PO (13:29)
[2023-08-19] MEDS: hydrOXYzine HCL 25 MG TABLET PO (13:30)
[2023-08-19] MEDS: Milk of Magnesia 30 ML ORAL.SUSP PO (13:32)
[2023-08-19 18:15] VITALS: BP 129/61; PULSE 83; RESP 16; TEMP 36.6; O2SAT 98
[2023-08-19] MEDS: traZODone HCL 50 MG TABLET PO (21:50)
[2023-08-19] MEDS: Mirtazapine 15 MG TABLET PO (21:51)
[2023-08-20 07:57] VITALS: BP 106/68; PULSE 81; RESP 16; TEMP 36.6; O2SAT 98
[2023-08-20] MEDS: methADONE HCl 20 MG/2 ML ORAL.CONC 70 MG PO (08:15)
[2023-08-20] MEDS: Folic Acid 1 MG TABLET PO (08:16)
[2023-08-20] MEDS: Multivitamin TABLET 1 TAB PO (08:16)
[2023-08-20] MEDS: Sertraline HCL 25 MG TABLET PO (08:16)
[2023-08-20] MEDS: Thiamine HCL 100 MG TABLET PO (08:16)
[2023-08-20] MEDS: Cyclobenzaprine HCl 5 MG TABLET PO (13:59)
[2023-08-20] MEDS: Ibuprofen 800 MG TABLET PO (14:57)
[2023-08-20 17:30] VITALS: BP 90/54; PULSE 98; RESP 16; TEMP 36.9; O2SAT 94
--- NOTE | 2023-08-20 18:13 | P.PNPSI_ITS ---
Subjective Subjective Date of Service: 08/20/23 Reason For Visit: crisis Subjective Notes: Conditional Voluntary Healthcare Proxy: No Guardianship: No Medical Problems Affecting Mental Status: No Interim History: Tolerating Sertraline. Anxious about referral to [facility]. Considering [facility] referral, states anger is decreasing with his boss- I just can never work with him again. Our knowing each other needs to end. Medication Compliance: Yes Side effects from medications: No Attending Groups: No Review of Systems Acute medical concerns: No Medical Review of Systems: unchanged Review of Systems Review of Systems Yes all other systems are reviewed and are negative Mental Status Exam Mental Status Exam Patient Appearance: Fatigued Patient Orientation: Person, Place, Time and Situation Level of Consciousness: Alert Patient Behavior: Talkative and Good Eye Contact Mood Description: Depressed Affect Description: Flat Patient Cognition Impaired: No Ability to Follow Directions: Good Speech Pattern: Spontaneous Speech Memory Description: Intact Delusions: Not Present Perceptual Disturbances: Depersonalization and Derealization Thought Process: Rumination Thought Content: positive for Circumstantial and positive for Suicidal Ideation (denies today) Depressive Symptoms: Feelings of Worthlessness, Hopelessness and Low Self Esteem Judgement: Fair Diagnostics Vital Signs (24Hr): Vital Signs - 24 hr 08/19/23 18:15 08/20/23 07:57 08/20/23 17:30 Temperature 97.9 F 97.8 F 98.4 F Pulse Rate 83 81 98 Respiratory Rate 16 16 16 Blood Pressure 129/61 106/68 90/54 L Pulse Oximetry 98 98 94 Oxygen Delivery Method Room Air Room Air Room Air BMI result Body Mass Index 18.4 Labs 08/13/23 14:21 08/15/23 08:36 Imaging Radiology Impressions: ITS Impressions Chest X-Ray 08/13/23 14:47 IMPRESSION: * Chronic emphysematous lung disease. * No acute cardiopulmonary abnormality. Medications Medications Current Medications Acetaminophen (Acetaminophen 325 Mg Tablet) 650 mg PO Q6H PRN PRN Reason: Headache/Pain Mild Scale (1-3) Last Admin: 08/19/23 13:29 Dose: 650 mg Al Hydroxide/Mg Hydroxide (Magnesium Hydrox/Alum Hydrox 30 Ml Oral.Susp) 30 ml PO Q6H PRN PRN Reason: Heartburn/Nausea Cyclobenzaprine HCl (Cyclobenzaprine Hcl 5 Mg Tablet) 5 mg PO TID PRN PRN Reason: back pain Last Admin: 08/20/23 13:59 Dose: 5 mg Folic Acid (Folic Acid 1 Mg Tablet) 1 mg PO DAILY [facility] Last Admin: 08/20/23 08:16 Dose: 1 mg Hydroxyzine HCl (Hydroxyzine Hcl 25 Mg Tablet) 25 mg PO TID PRN PRN Reason: anxiety Last Admin: 08/19/23 13:30 Dose: 25 mg Ibuprofen (Ibuprofen 800 Mg Tablet) 800 mg PO Q8H PRN PRN Reason: Pain, Mild (Pain Scale 1-3) Last Admin: 08/20/23 14:57 Dose: 800 mg Magnesium Hydroxide (Milk Of Magnesia 30 Ml Oral.Susp) 30 ml PO DAILY PRN PRN Reason: Constipation Last Admin: 08/19/23 13:32 Dose: 30 ml Methadone HCl (Methadone Hcl 20 Mg/2 Ml Oral.Conc) 70 mg PO DAILY [facility] Last Admin: 08/20/23 08:15 Dose: 70 mg Mirtazapine (Mirtazapine 15 Mg Tablet) 15 mg PO BEDTIME [facility] Last Admin: 08/19/23 21:51 Dose: 15 mg Multivitamins/Vitamin C (Multivitamin Tablet) 1 tab PO DAILY [facility] Last Admin: 08/20/23 08:16 Dose: 1 tab Nicotine Polacrilex (Nicotine Polacrilex 2 Mg Gum) 4 mg BUCCAL Q2H PRN PRN Reason: Nicotine Cravings Sertraline HCl (Sertraline Hcl 25 Mg Tablet) 25 mg PO DAILY [facility] Last Admin: 08/20/23 08:16 Dose: 25 mg Thiamine HCl (Thiamine Hcl 100 Mg Tablet) 100 mg PO DAILY [facility] Last Admin: 08/20/23 08:16 Dose: 100 mg Trazodone HCl (Trazodone Hcl 50 Mg Tablet) 50 mg PO BEDTIME MRX1 PRN PRN Reason: Insomnia Last Admin: 08/19/23 21:50 Dose: 50 mg Allergies Allergies Allergy/AdvReac Type Severity Reaction Status Date / Time No Known Allergies Allergy Unverified 02/19/20 18:38 [No Known Allergies*] Assessment & Plan Assessment & Plan (1) Recurrent major depression: Status: Acute Code(s): F33.9 - Major depressive disorder, recurrent, unspecified Assessment and Plan: Sertraline initiated 08/16/24. (2) Opioid use disorder, severe, on maintenance therapy: Status: Acute Code(s): F11.20 - Opioid dependence, uncomplicated Assessment and Plan: Pt considering CSS placement upon discharge (3) Cocaine use disorder: Status: Acute Code(s): F14.10 - Cocaine abuse, uncomplicated Plan 08/18/2023: Continue current regimen and plans.D/C COW 08/20/23: Continue current regime and plan. Patient educated on: medication risk/benefits and substance abuse Informed Consent: understands and further education needed Reason for continued inpatient stay Substantial Risk for: rapid decompensation Time Spent With Patient Time: Total time managing care of this patient today ____ minutes.
--- NOTE | 2023-08-20 21:08 | MHC.RECOVSUP ---
? Reason for consult Recovery Support o Current location: 510-2 o Identified substance use concern: Alcohol - Support ? Intervention: o Community resources provided o Harm reduction discussion ? Plan: o Patient to follow up with [facility] after discharge ? Additional information: Met with Patient and we talk about recovery and different pathways.. We talk about Harm reduction and MAT, and the recovery centers.
[2023-08-20] MEDS: Mirtazapine 15 MG TABLET PO (22:18)
[2023-08-20] MEDS: traZODone HCL 50 MG TABLET PO (22:18)
[2023-08-21 08:17] VITALS: BP 95/60; PULSE 72; RESP 16; TEMP 36.1; O2SAT 98
[2023-08-21] MEDS: Thiamine HCL 100 MG TABLET PO (08:23)
[2023-08-21] MEDS: Sertraline HCL 25 MG TABLET PO (08:23)
[2023-08-21] MEDS: methADONE HCl 20 MG/2 ML ORAL.CONC 70 MG PO (08:23)
[2023-08-21] MEDS: Multivitamin TABLET 1 TAB PO (08:23)
[2023-08-21] MEDS: Folic Acid 1 MG TABLET PO (08:23)
--- NOTE | 2023-08-21 09:57 | P.PNPSI_ITS ---
Subjective Subjective Date of Service: 08/21/23 Reason For Visit: crisis Subjective Notes: Conditional Voluntary Healthcare Proxy: No Guardianship: No Medical Problems Affecting Mental Status: No Interim History: Reports Left Ear is blocked-discussed debrox which he reports he has tried and has been not effective. Will ask hospitalist to see pt. 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 Pt agrees. Review of meds. Tolerating Sertraline-will increase to 50 mg on 08/21. Trazodone is helpful for sleep- discussed increase to 100 mg HS. Considering [facility] application. Medication Compliance: Yes Side effects from medications: No Attending Groups: No Review of Systems Acute medical concerns: No L Ear blocked Medical Review of Systems: unchanged Review of Systems Review of Systems Left Ear Blockage Lump on the back of his head [id number]. Mental Status Exam Mental Status Exam Patient Appearance: Fatigued Patient Orientation: Person, Place, Time and Situation Level of Consciousness: Alert Patient Behavior: Talkative and Good Eye Contact Mood Description: Depressed Affect Description: Flat Patient Cognition Impaired: No Ability to Follow Directions: Good Speech Pattern: Spontaneous Speech Memory Description: Intact Delusions: Not Present Perceptual Disturbances: Depersonalization and Derealization Thought Process: Rumination Thought Content: positive for Circumstantial and positive for Suicidal Ideation (denies today) Depressive Symptoms: Feelings of Worthlessness, Hopelessness and Low Self Esteem Judgement: Fair Diagnostics Vital Signs (24Hr): Vital Signs - 24 hr 08/20/23 17:30 08/21/23 08:17 Temperature 98.4 F 96.9 F Pulse Rate 98 72 Respiratory Rate 16 16 Blood Pressure 90/54 L 95/60 Pulse Oximetry 94 98 Oxygen Delivery Method Room Air Room Air BMI result Body Mass Index 18.4 Labs 08/13/23 14:21 08/15/23 08:36 Imaging Radiology Impressions: ITS Impressions Chest X-Ray 08/13/23 14:47 IMPRESSION: * Chronic emphysematous lung disease. * No acute cardiopulmonary abnormality. Medications Medications Current Medications Acetaminophen (Acetaminophen 325 Mg Tablet) 650 mg PO Q6H PRN PRN Reason: Headache/Pain Mild Scale (1-3) Last Admin: 08/19/23 13:29 Dose: 650 mg Al Hydroxide/Mg Hydroxide (Magnesium Hydrox/Alum Hydrox 30 Ml Oral.Susp) 30 ml PO Q6H PRN PRN Reason: Heartburn/Nausea Cyclobenzaprine HCl (Cyclobenzaprine Hcl 5 Mg Tablet) 5 mg PO TID PRN PRN Reason: back pain Last Admin: 08/20/23 13:59 Dose: 5 mg Folic Acid (Folic Acid 1 Mg Tablet) 1 mg PO DAILY [facility] Last Admin: 08/21/23 08:23 Dose: 1 mg Hydroxyzine HCl (Hydroxyzine Hcl 25 Mg Tablet) 25 mg PO TID PRN PRN Reason: anxiety Last Admin: 08/19/23 13:30 Dose: 25 mg Ibuprofen (Ibuprofen 800 Mg Tablet) 800 mg PO Q8H PRN PRN Reason: Pain, Mild (Pain Scale 1-3) Last Admin: 08/20/23 14:57 Dose: 800 mg Magnesium Hydroxide (Milk Of Magnesia 30 Ml Oral.Susp) 30 ml PO DAILY PRN PRN Reason: Constipation Last Admin: 08/19/23 13:32 Dose: 30 ml Methadone HCl (Methadone Hcl 20 Mg/2 Ml Oral.Conc) 70 mg PO DAILY [facility] Last Admin: 08/21/23 08:23 Dose: 70 mg Mirtazapine (Mirtazapine 15 Mg Tablet) 15 mg PO BEDTIME [facility] Last Admin: 08/20/23 22:18 Dose: 15 mg Multivitamins/Vitamin C (Multivitamin Tablet) 1 tab PO DAILY [facility] Last Admin: 08/21/23 08:23 Dose: 1 tab Nicotine Polacrilex (Nicotine Polacrilex 2 Mg Gum) 4 mg BUCCAL Q2H PRN PRN Reason: Nicotine Cravings Sertraline HCl (Sertraline Hcl 25 Mg Tablet) 25 mg PO DAILY [facility] Last Admin: 08/21/23 08:23 Dose: 25 mg Thiamine HCl (Thiamine Hcl 100 Mg Tablet) 100 mg PO DAILY [facility] Last Admin: 08/21/23 08:23 Dose: 100 mg Trazodone HCl (Trazodone Hcl 50 Mg Tablet) 50 mg PO BEDTIME MRX1 PRN PRN Reason: Insomnia Last Admin: 08/20/23 22:18 Dose: 50 mg Allergies Allergies Allergy/AdvReac Type Severity Reaction Status Date / Time No Known Allergies Allergy Unverified 02/19/20 18:38 [No Known Allergies*] Assessment & Plan Assessment & Plan (1) Recurrent major depression: Status: Acute Code(s): F33.9 - Major depressive disorder, recurrent, unspecified Assessment and Plan: Sertraline initiated 08/16/24. 08/21/23: Increase Sertraline to 50 mg daily Increase Trazodone to 100 mg HS (2) Opioid use disorder, severe, on maintenance therapy: Status: Acute Code(s): F11.20 - Opioid dependence, uncomplicated Assessment and Plan: Pt considering CSS placement upon discharge (3) Cocaine use disorder: Status: Acute Code(s): F14.10 - Cocaine abuse, uncomplicated Plan 08/18/2023: Continue current regimen and plans.D/C COW Patient educated on: medication risk/benefits, therapeutic strategies and medical condition Informed Consent: understands and further education needed Reason for continued inpatient stay Substantial Risk for: rapid decompensation Time Spent With Patient Time: Total time managing care of this patient today ____ minutes.
[2023-08-21] MEDS: hydrOXYzine HCL 25 MG TABLET PO (15:15)
[2023-08-21 19:35] VITALS: BP 130/72; PULSE 72; RESP 16; TEMP 36.4; O2SAT 96
[2023-08-21] MEDS: Mirtazapine 15 MG TABLET PO (22:18)
[2023-08-21] MEDS: Cyclobenzaprine HCl 5 MG TABLET PO (22:18)
[2023-08-21] MEDS: Ibuprofen 800 MG TABLET PO (22:18)
[2023-08-21] MEDS: traZODone HCL 100 MG TABLET PO (22:18)
[2023-08-22 08:00] VITALS: BP 100/74; PULSE 71; RESP 16; TEMP 36; O2SAT 98
[2023-08-22] MEDS: methADONE HCl 20 MG/2 ML ORAL.CONC 70 MG PO (08:25)
[2023-08-22] MEDS: Folic Acid 1 MG TABLET PO (08:25)
[2023-08-22] MEDS: Thiamine HCL 100 MG TABLET PO (08:25)
[2023-08-22] MEDS: Sertraline HCL 50 MG TABLET PO (08:25)
[2023-08-22] MEDS: Multivitamin TABLET 1 TAB PO (08:25)
[2023-08-22] MEDS: Ibuprofen 800 MG TABLET PO ×2 (08:33→16:34)
[2023-08-22] MEDS: Cyclobenzaprine HCl 5 MG TABLET PO ×2 (08:33→16:34)
[2023-08-22] MEDS: hydrOXYzine HCL 25 MG TABLET PO (16:33)
--- NOTE | 2023-08-22 16:44 | HO.PSYCHPN ---
Subjective Subjective Date of Service: 08/22/23 Reason For Visit: crisis Subjective Notes: Conditional Voluntary Healthcare Proxy: No Guardianship: No Medical Problems Affecting Mental Status: No Interim History: Visable in the milieu. Tolerating medications and recent increases. Declines [facility] application process today. States he believes he has enough connections to find work and is not in current need of this service. [facility] has accepted pt for 08/23/23. Team has arranged recovery coaching with Moe and a [facility] worker with [employer]. Medication Compliance: Yes Side effects from medications: No Attending Groups: No Review of Systems Acute medical concerns: No Medical Review of Systems: unchanged Review of Systems Review of Systems Yes all other systems are reviewed and are negative Mental Status Exam Mental Status Exam Patient Appearance: Fatigued Patient Orientation: Person, Place, Time and Situation Level of Consciousness: Alert Patient Behavior: Talkative and Good Eye Contact Mood Description: Depressed Affect Description: Flat Patient Cognition Impaired: No Ability to Follow Directions: Good Speech Pattern: Spontaneous Speech Memory Description: Intact Delusions: Not Present Perceptual Disturbances: Depersonalization and Derealization Thought Process: Rumination Thought Content: positive for Circumstantial and positive for Suicidal Ideation (denies today) Depressive Symptoms: Feelings of Worthlessness, Hopelessness and Low Self Esteem Judgement: Fair Diagnostics Vital Signs (24Hr): Vital Signs - 24 hr 08/21/23 19:35 08/22/23 08:00 Temperature 97.6 F 96.8 F Pulse Rate 72 71 Respiratory Rate 16 16 Blood Pressure 130/72 100/74 Pulse Oximetry 96 98 Oxygen Delivery Method Room Air Room Air BMI result Body Mass Index 18.4 Labs 08/13/23 14:21 08/15/23 08:36 Imaging Radiology Impressions: ITS Impressions Chest X-Ray 08/13/23 14:47 IMPRESSION: * Chronic emphysematous lung disease. * No acute cardiopulmonary abnormality. Medications Medications Current Medications Acetaminophen (Acetaminophen 325 Mg Tablet) 650 mg PO Q6H PRN PRN Reason: Headache/Pain Mild Scale (1-3) Last Admin: 08/19/23 13:29 Dose: 650 mg Al Hydroxide/Mg Hydroxide (Magnesium Hydrox/Alum Hydrox 30 Ml Oral.Susp) 30 ml PO Q6H PRN PRN Reason: Heartburn/Nausea Carbamide Peroxide (Carbamide Peroxide 6.5% Otic 15 Ml Drpbtl) 5 drop EAR-BOTH BID SHYANN Stop: 08/26/23 14:58 Cyclobenzaprine HCl (Cyclobenzaprine Hcl 5 Mg Tablet) 5 mg PO TID PRN PRN Reason: back pain Last Admin: 08/22/23 16:34 Dose: 5 mg Folic Acid (Folic Acid 1 Mg Tablet) 1 mg PO DAILY [facility] Last Admin: 08/22/23 08:25 Dose: 1 mg Hydroxyzine HCl (Hydroxyzine Hcl 25 Mg Tablet) 25 mg PO TID PRN PRN Reason: anxiety Last Admin: 08/22/23 16:33 Dose: 25 mg Ibuprofen (Ibuprofen 800 Mg Tablet) 800 mg PO Q8H PRN PRN Reason: Pain, Mild (Pain Scale 1-3) Last Admin: 08/22/23 16:34 Dose: 800 mg Magnesium Hydroxide (Milk Of Magnesia 30 Ml Oral.Susp) 30 ml PO DAILY PRN PRN Reason: Constipation Last Admin: 08/19/23 13:32 Dose: 30 ml Methadone HCl (Methadone Hcl 20 Mg/2 Ml Oral.Conc) 70 mg PO DAILY [facility] Last Admin: 08/22/23 08:25 Dose: 70 mg Mirtazapine (Mirtazapine 15 Mg Tablet) 15 mg PO BEDTIME [facility] Last Admin: 08/21/23 22:18 Dose: 15 mg Multivitamins/Vitamin C (Multivitamin Tablet) 1 tab PO DAILY [facility] Last Admin: 08/22/23 08:25 Dose: 1 tab Nicotine Polacrilex (Nicotine Polacrilex 2 Mg Gum) 4 mg BUCCAL Q2H PRN PRN Reason: Nicotine Cravings Sertraline HCl (Sertraline Hcl 50 Mg Tablet) 50 mg PO DAILY [facility] Last Admin: 08/22/23 08:25 Dose: 50 mg Thiamine HCl (Thiamine Hcl 100 Mg Tablet) 100 mg PO DAILY [facility] Last Admin: 08/22/23 08:25 Dose: 100 mg Trazodone HCl (Trazodone Hcl 100 Mg Tablet) 100 mg PO BEDTIME MRX1 PRN PRN Reason: Insomnia Last Admin: 08/21/23 22:18 Dose: 100 mg Allergies Allergies Allergy/AdvReac Type Severity Reaction Status Date / Time No Known Allergies Allergy Unverified 02/19/20 18:38 [No Known Allergies*] Assessment & Plan Assessment & Plan (1) Recurrent major depression: Status: Acute Code(s): F33.9 - Major depressive disorder, recurrent, unspecified Assessment and Plan: Sertraline initiated 08/16/24. 08/21/23: Increase Sertraline to 50 mg daily Increase Trazodone to 100 mg HS (2) Opioid use disorder, severe, on maintenance therapy: Status: Acute Code(s): F11.20 - Opioid dependence, uncomplicated Assessment and Plan: Pt considering [facility] placement upon discharge 08/22/23: Discharge 08/23/23 to [facility]. (3) Cocaine use disorder: Status: Acute Code(s): F14.10 - Cocaine abuse, uncomplicated Plan 08/18/2023: Continue current regimen and plans.D/C COW Patient educated on: other Informed Consent: understands Reason for continued inpatient stay Substantial Risk for: rapid decompensation Time Spent With Patient Time: Total time managing care of this patient today ____ minutes.
[2023-08-22 18:35] VITALS: BP 99/59; PULSE 90; RESP 16; TEMP 36.2; O2SAT 98
[2023-08-22] MEDS: Mirtazapine 15 MG TABLET PO (20:30)
[2023-08-22] MEDS: Carbamide Peroxide 6.5% Otic 15 ML DRPBTL 5 DROP EAR-BOTH (20:31)
[2023-08-23] MEDS: Thiamine HCL 100 MG TABLET PO (08:42)
[2023-08-23] MEDS: Folic Acid 1 MG TABLET PO (08:42)
[2023-08-23] MEDS: Multivitamin TABLET 1 TAB PO (08:42)
[2023-08-23] MEDS: methADONE HCl 20 MG/2 ML ORAL.CONC 70 MG PO (08:42)
[2023-08-23] MEDS: Sertraline HCL 50 MG TABLET PO (08:42)
[2023-08-23] MEDS: Carbamide Peroxide 6.5% Otic 15 ML DRPBTL 5 DROP EAR-BOTH ×2 (08:45→19:49)
[2023-08-23 08:50] VITALS: BP 119/70; PULSE 59; RESP 16; TEMP 35.9; O2SAT 98
[2023-08-23] MEDS: OXcarbazepine 300 MG TABLET PO ×2 (11:00→19:49)
[2023-08-23 11:39] VITALS: BMI 19.4
--- NOTE | 2023-08-23 13:13 | HO.PSYCHPN ---
Subjective Subjective Date of Service: 08/23/23 Reason For Visit: crisis Subjective Notes: Conditional Voluntary Healthcare Proxy: No Guardianship: No Medical Problems Affecting Mental Status: No Interim History: Pt today accepted by [facility]. He declined, stating he did not feel ready to leave. Identifies safety and anxiety as issues. Reviewed medications and discussed options to improve sx mgt. Reports he is attending groups and finding them helpful Medication Compliance: Yes Side effects from medications: No Attending Groups: Intermittent Review of Systems Acute medical concerns: No Medical Review of Systems: unchanged Review of Systems Review of Systems Yes all other systems are reviewed and are negative Mental Status Exam Mental Status Exam Patient Appearance: Fatigued Patient Orientation: Person, Place, Time and Situation Level of Consciousness: Alert Patient Behavior: Talkative and Good Eye Contact Mood Description: Depressed and Anxious Affect Description: Flat Patient Cognition Impaired: No Ability to Follow Directions: Good Speech Pattern: Spontaneous Speech Memory Description: Intact Delusions: Not Present Perceptual Disturbances: Depersonalization and Derealization Thought Process: Rumination Thought Content: positive for Circumstantial and positive for Suicidal Ideation (denies today) Depressive Symptoms: Feelings of Worthlessness, Hopelessness and Low Self Esteem Judgement: Fair Diagnostics Vital Signs (24Hr): Vital Signs - 24 hr 08/22/23 18:35 08/23/23 08:50 Temperature 97.2 F 96.7 F L Pulse Rate 90 59 Respiratory Rate 16 16 Blood Pressure 99/59 L 119/70 Pulse Oximetry 98 98 Oxygen Delivery Method Room Air Room Air BMI result Body Mass Index 19.4 Labs 08/13/23 14:21 08/15/23 08:36 Imaging Radiology Impressions: ITS Impressions Chest X-Ray 08/13/23 14:47 IMPRESSION: * Chronic emphysematous lung disease. * No acute cardiopulmonary abnormality. Medications Medications Current Medications Acetaminophen (Acetaminophen 325 Mg Tablet) 650 mg PO Q6H PRN PRN Reason: Headache/Pain Mild Scale (1-3) Last Admin: 08/19/23 13:29 Dose: 650 mg Al Hydroxide/Mg Hydroxide (Magnesium Hydrox/Alum Hydrox 30 Ml Oral.Susp) 30 ml PO Q6H PRN PRN Reason: Heartburn/Nausea Carbamide Peroxide (Carbamide Peroxide 6.5% Otic 15 Ml Drpbtl) 5 drop EAR-BOTH BID SHYANN Stop: 08/26/23 14:58 Last Admin: 08/23/23 08:45 Dose: 5 drop Cyclobenzaprine HCl (Cyclobenzaprine Hcl 5 Mg Tablet) 5 mg PO TID PRN PRN Reason: back pain Last Admin: 08/22/23 16:34 Dose: 5 mg Folic Acid (Folic Acid 1 Mg Tablet) 1 mg PO DAILY [facility] Last Admin: 08/23/23 08:42 Dose: 1 mg Hydroxyzine HCl (Hydroxyzine Hcl 25 Mg Tablet) 25 mg PO TID PRN PRN Reason: anxiety Last Admin: 08/22/23 16:33 Dose: 25 mg Ibuprofen (Ibuprofen 800 Mg Tablet) 800 mg PO Q8H PRN PRN Reason: Pain, Mild (Pain Scale 1-3) Last Admin: 08/22/23 16:34 Dose: 800 mg Magnesium Hydroxide (Milk Of Magnesia 30 Ml Oral.Susp) 30 ml PO DAILY PRN PRN Reason: Constipation Last Admin: 08/19/23 13:32 Dose: 30 ml Methadone HCl (Methadone Hcl 20 Mg/2 Ml Oral.Conc) 70 mg PO DAILY [facility] Last Admin: 08/23/23 08:42 Dose: 70 mg Mirtazapine (Mirtazapine 15 Mg Tablet) 15 mg PO BEDTIME [facility] Last Admin: 08/22/23 20:30 Dose: 15 mg Multivitamins/Vitamin C (Multivitamin Tablet) 1 tab PO DAILY [facility] Last Admin: 08/23/23 08:42 Dose: 1 tab Nicotine Polacrilex (Nicotine Polacrilex 2 Mg Gum) 4 mg BUCCAL Q2H PRN PRN Reason: Nicotine Cravings Oxcarbazepine (Oxcarbazepine 300 Mg Tablet) 300 mg PO BID [facility] Last Admin: 08/23/23 11:00 Dose: 300 mg Sertraline HCl (Sertraline Hcl 50 Mg Tablet) 50 mg PO DAILY [facility] Last Admin: 08/23/23 08:42 Dose: 50 mg Thiamine HCl (Thiamine Hcl 100 Mg Tablet) 100 mg PO DAILY [facility] Last Admin: 08/23/23 08:42 Dose: 100 mg Trazodone HCl (Trazodone Hcl 100 Mg Tablet) 100 mg PO BEDTIME MRX1 PRN PRN Reason: Insomnia Last Admin: 08/21/23 22:18 Dose: 100 mg Allergies Allergies Allergy/AdvReac Type Severity Reaction Status Date / Time No Known Allergies Allergy Unverified 02/19/20 18:38 [No Known Allergies*] Assessment & Plan Assessment & Plan (1) Recurrent major depression: Status: Acute Code(s): F33.9 - Major depressive disorder, recurrent, unspecified Assessment and Plan: Sertraline initiated 08/16/24. 08/21/23: Increase Sertraline to 50 mg daily Increase Trazodone to 100 mg HS (2) Opioid use disorder, severe, on maintenance therapy: Status: Acute Code(s): F11.20 - Opioid dependence, uncomplicated Assessment and Plan: Pt considering [facility] placement upon discharge 08/22/23: Discharge 08/23/23 to [facility]. 08/23/23: Pt reporting he is not prepared to discharge. Reports severe anxiety Trileptal 300 mg bid trial for anxiety (3) Cocaine use disorder: Status: Acute Code(s): F14.10 - Cocaine abuse, uncomplicated Plan 08/18/2023: Continue current regimen and plans.D/C COW Patient educated on: therapeutic strategies Reason for continued inpatient stay Substantial Risk for: rapid decompensation Time Spent With Patient Time: Total time managing care of this patient today ____ minutes.
[2023-08-23] MEDS: Cyclobenzaprine HCl 5 MG TABLET PO (14:41)
[2023-08-23] MEDS: Ibuprofen 800 MG TABLET PO (14:41)
[2023-08-23 18:35] VITALS: BP 120/71; PULSE 72; RESP 16; TEMP 36.6; O2SAT 99
[2023-08-23] MEDS: Mirtazapine 15 MG TABLET PO (19:49)
[2023-08-24] MEDS: Multivitamin TABLET 1 TAB PO (09:14)
[2023-08-24] MEDS: OXcarbazepine 300 MG TABLET PO ×2 (09:14→21:13)
[2023-08-24] MEDS: Folic Acid 1 MG TABLET PO (09:15)
[2023-08-24] MEDS: Sertraline HCL 50 MG TABLET PO (09:15)
[2023-08-24] MEDS: Thiamine HCL 100 MG TABLET PO (09:15)
[2023-08-24] MEDS: methADONE HCl 20 MG/2 ML ORAL.CONC 70 MG PO (09:15)
[2023-08-24 10:50] VITALS: BP 120/64; PULSE 85; RESP 16; TEMP 36.6; O2SAT 99
[2023-08-24] MEDS: Cyclobenzaprine HCl 5 MG TABLET PO (14:39)
[2023-08-24] MEDS: Ibuprofen 800 MG TABLET PO (14:39)
[2023-08-24 18:00] VITALS: BP 118/67; PULSE 67; RESP 18; TEMP 36.4; O2SAT 98
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
[2023-08-24] MEDS: Mirtazapine 15 MG TABLET PO (21:13)
[2023-08-24] MEDS: QUEtiapine Fumarate 25 MG TABLET PO (21:14)
[2023-08-25 08:00] VITALS: BP 112/69; PULSE 76; RESP 16; TEMP 36.5; O2SAT 98
[2023-08-25] MEDS: methADONE HCl 20 MG/2 ML ORAL.CONC 70 MG PO (08:44)
[2023-08-25] MEDS: Multivitamin TABLET 1 TAB PO (08:45)
[2023-08-25] MEDS: Thiamine HCL 100 MG TABLET PO (08:45)
[2023-08-25] MEDS: Sertraline HCL 50 MG TABLET PO (08:45)
[2023-08-25] MEDS: Folic Acid 1 MG TABLET PO (08:45)
[2023-08-25] MEDS: OXcarbazepine 300 MG TABLET PO ×2 (08:45→20:32)
[2023-08-25] MEDS: Carbamide Peroxide 6.5% Otic 15 ML DRPBTL 5 DROP EAR-BOTH (09:18)
--- NOTE | 2023-08-25 09:48 | HO.PSYCHPN ---
Subjective Subjective Date of Service: 08/25/23 Reason For Visit: crisis Interim History: Bobo reports he is adjusting to the medication changes that were implemented. He is tolerating the medications well. He would like to continue the trial. He denies SI. He denies AVH. Review of Systems Review of Systems Left Ear Blockage Lump on the back of his head [id number] years. Yes all other systems are reviewed and are negative Constitutional: Reports as per [facility] Mental Status Exam Mental Status Exam Patient Appearance: Fatigued Patient Orientation: Person, Place, Time and Situation Level of Consciousness: Alert Patient Behavior: Talkative and Good Eye Contact Mood Description: Depressed and Anxious Affect Description: Flat Patient Cognition Impaired: No Ability to Follow Directions: Good Speech Pattern: Spontaneous Speech Memory Description: Intact Diagnostics Vital Signs (24Hr): Vital Signs - 24 hr 08/24/23 10:50 08/24/23 18:00 08/25/23 08:00 Temperature 97.8 F 97.6 F 97.7 F Pulse Rate 85 67 76 Respiratory Rate 16 18 16 Blood Pressure 120/64 118/67 112/69 Pulse Oximetry 99 98 98 Oxygen Delivery Method Room Air Room Air Room Air BMI result Body Mass Index 19.4 Labs 08/13/23 14:21 08/15/23 08:36 Imaging Radiology Impressions: ITS Impressions Chest X-Ray 08/13/23 14:47 IMPRESSION: * Chronic emphysematous lung disease. * No acute cardiopulmonary abnormality. Medications Medications Current Medications Acetaminophen (Acetaminophen 325 Mg Tablet) 650 mg PO Q6H PRN PRN Reason: Headache/Pain Mild Scale (1-3) Last Admin: 08/19/23 13:29 Dose: 650 mg Al Hydroxide/Mg Hydroxide (Magnesium Hydrox/Alum Hydrox 30 Ml Oral.Susp) 30 ml PO Q6H PRN PRN Reason: Heartburn/Nausea Carbamide Peroxide (Carbamide Peroxide 6.5% Otic 15 Ml Drpbtl) 5 drop EAR-BOTH BID SHY[facility] Stop: 08/26/23 14:58 Last Admin: 08/25/23 09:18 Dose: 5 drop Cyclobenzaprine HCl (Cyclobenzaprine Hcl 5 Mg Tablet) 5 mg PO TID PRN PRN Reason: back pain Last Admin: 08/24/23 14:39 Dose: 5 mg Folic Acid (Folic Acid 1 Mg Tablet) 1 mg PO DAILY [facility] Last Admin: 08/25/23 08:45 Dose: 1 mg Hydroxyzine HCl (Hydroxyzine Hcl 25 Mg Tablet) 25 mg PO TID PRN PRN Reason: anxiety Last Admin: 08/22/23 16:33 Dose: 25 mg Ibuprofen (Ibuprofen 800 Mg Tablet) 800 mg PO Q8H PRN PRN Reason: Pain, Mild (Pain Scale 1-3) Last Admin: 08/24/23 14:39 Dose: 800 mg Magnesium Hydroxide (Milk Of Magnesia 30 Ml Oral.Susp) 30 ml PO DAILY PRN PRN Reason: Constipation Last Admin: 08/19/23 13:32 Dose: 30 ml Methadone HCl (Methadone Hcl 20 Mg/2 Ml Oral.Conc) 70 mg PO DAILY [facility] Last Admin: 08/25/23 08:44 Dose: 70 mg Mirtazapine (Mirtazapine 15 Mg Tablet) 15 mg PO BEDTIME [facility] Last Admin: 08/24/23 21:13 Dose: 15 mg Multivitamins/Vitamin C (Multivitamin Tablet) 1 tab PO DAILY [facility] Last Admin: 08/25/23 08:45 Dose: 1 tab Nicotine Polacrilex (Nicotine Polacrilex 2 Mg Gum) 4 mg BUCCAL Q2H PRN PRN Reason: Nicotine Cravings Oxcarbazepine (Oxcarbazepine 300 Mg Tablet) 300 mg PO BID [facility] Last Admin: 08/25/23 08:45 Dose: 300 mg Quetiapine Fumarate (Quetiapine Fumarate 25 Mg Tablet) 25 mg PO BEDTIME [facility] Last Admin: 08/24/23 21:14 Dose: 25 mg Quetiapine Fumarate (Quetiapine Fumarate 25 Mg Tablet) 25 mg PO DAILY PRN PRN Reason: insomnia, anxiety Sertraline HCl (Sertraline Hcl 50 Mg Tablet) 50 mg PO DAILY [facility] Last Admin: 08/25/23 08:45 Dose: 50 mg Thiamine HCl (Thiamine Hcl 100 Mg Tablet) 100 mg PO DAILY [facility] Last Admin: 08/25/23 08:45 Dose: 100 mg Trazodone HCl (Trazodone Hcl 100 Mg Tablet) 100 mg PO BEDTIME MRX1 PRN PRN Reason: Insomnia Last Admin: 08/21/23 22:18 Dose: 100 mg Allergies Allergies Allergy/AdvReac Type Severity Reaction Status Date / Time No Known Allergies Allergy Unverified 02/19/20 18:38 [No Known Allergies*] Assessment & Plan Assessment & Plan (1) Recurrent major depression: Status: Acute Code(s): F33.9 - Major depressive disorder, recurrent, unspecified Assessment and Plan: Sertraline initiated 08/16/24. 08/21/23: Increase Sertraline to 50 mg daily Increase Trazodone to 100 mg HS (2) Opioid use disorder, severe, on maintenance therapy: Status: Acute Code(s): F11.20 - Opioid dependence, uncomplicated Assessment and Plan: Pt considering [facility] placement upon discharge 08/22/23: Discharge 08/23/23 to [facility]. 08/23/23: Pt reporting he is not prepared to discharge. Reports severe anxiety Trileptal 300 mg bid trial for anxiety 08/24/23: Seroquel 25 mg HS and 25 mg daily prn for sleep/anxiety mgt. 08/24: continue current management and treatment plan. (3) Cocaine use disorder: Status: Acute Code(s): F14.10 - Cocaine abuse, uncomplicated Plan 08/18/2023: Continue current regimen and plans.D/C COW Reason for continued inpatient stay Substantial Risk for: harm to self, inability to function and rapid decompensation Time Spent With Patient Time: Total time managing care of this patient today ____ minutes.
[2023-08-25] MEDS: Cyclobenzaprine HCl 5 MG TABLET PO (12:08)
[2023-08-25] MEDS: Ibuprofen 800 MG TABLET PO (12:08)
[2023-08-25 17:34] VITALS: BP 111/60; PULSE 70; TEMP 36.4; O2SAT 98
[2023-08-25] MEDS: QUEtiapine Fumarate 25 MG TABLET PO (20:32)
[2023-08-25] MEDS: Mirtazapine 15 MG TABLET PO (20:32)
[2023-08-25] MEDS: traZODone HCL 100 MG TABLET PO (20:53)
[2023-08-26 08:07] VITALS: BP 103/61; PULSE 68; RESP 16; TEMP 36.4; O2SAT 97
[2023-08-26] MEDS: OXcarbazepine 300 MG TABLET PO ×2 (08:41→23:01)
[2023-08-26] MEDS: Multivitamin TABLET 1 TAB PO (08:41)
[2023-08-26] MEDS: Sertraline HCL 50 MG TABLET PO (08:41)
[2023-08-26] MEDS: Folic Acid 1 MG TABLET PO (08:41)
[2023-08-26] MEDS: Thiamine HCL 100 MG TABLET PO (08:41)
[2023-08-26] MEDS: methADONE HCl 20 MG/2 ML ORAL.CONC 70 MG PO (08:42)
--- NOTE | 2023-08-26 09:06 | HO.PSYCHPN ---
Subjective Subjective Date of Service: 08/26/23 Reason For Visit: crisis Interim History: Bobo reports he is adjusting to the medication changes that were implemented. He is tolerating the medications well. He would like to continue the trial. He denies SI. He denies AVH. Review of Systems Review of Systems Left Ear Blockage Lump on the back of his head [id number]. Yes all other systems are reviewed and are negative Constitutional: Reports as per [facility] Mental Status Exam Mental Status Exam Patient Appearance: Fatigued Patient Orientation: Person, Place, Time and Situation Level of Consciousness: Alert Patient Behavior: Talkative and Good Eye Contact Mood Description: Depressed and Anxious Affect Description: Flat Patient Cognition Impaired: No Ability to Follow Directions: Good Speech Pattern: Spontaneous Speech Memory Description: Intact Diagnostics Vital Signs (24Hr): Vital Signs - 24 hr 08/25/23 17:34 08/26/23 08:07 Temperature 97.5 F 97.5 F Pulse Rate 70 68 Respiratory Rate 16 Blood Pressure 111/60 103/61 Pulse Oximetry 98 97 Oxygen Delivery Method Room Air Room Air BMI result Body Mass Index 19.4 Labs 08/13/23 14:21 08/15/23 08:36 Imaging Radiology Impressions: ITS Impressions Chest X-Ray 08/13/23 14:47 IMPRESSION: * Chronic emphysematous lung disease. * No acute cardiopulmonary abnormality. Medications Medications Current Medications Acetaminophen (Acetaminophen 325 Mg Tablet) 650 mg PO Q6H PRN PRN Reason: Headache/Pain Mild Scale (1-3) Last Admin: 08/19/23 13:29 Dose: 650 mg Al Hydroxide/Mg Hydroxide (Magnesium Hydrox/Alum Hydrox 30 Ml Oral.Susp) 30 ml PO Q6H PRN PRN Reason: Heartburn/Nausea Carbamide Peroxide (Carbamide Peroxide 6.5% Otic 15 Ml Drpbtl) 5 drop EAR-BOTH BID [facility] Stop: 08/26/23 14:58 Last Admin: 08/25/23 22:02 Dose: Not Given Cyclobenzaprine HCl (Cyclobenzaprine Hcl 5 Mg Tablet) 5 mg PO TID PRN PRN Reason: back pain Last Admin: 08/25/23 12:08 Dose: 5 mg Folic Acid (Folic Acid 1 Mg Tablet) 1 mg PO DAILY [facility] Last Admin: 08/26/23 08:41 Dose: 1 mg Hydroxyzine HCl (Hydroxyzine Hcl 25 Mg Tablet) 25 mg PO TID PRN PRN Reason: anxiety Last Admin: 08/22/23 16:33 Dose: 25 mg Ibuprofen (Ibuprofen 800 Mg Tablet) 800 mg PO Q8H PRN PRN Reason: Pain, Mild (Pain Scale 1-3) Last Admin: 08/25/23 12:08 Dose: 800 mg Magnesium Hydroxide (Milk Of Magnesia 30 Ml Oral.Susp) 30 ml PO DAILY PRN PRN Reason: Constipation Last Admin: 08/19/23 13:32 Dose: 30 ml Methadone HCl (Methadone Hcl 20 Mg/2 Ml Oral.Conc) 70 mg PO DAILY [facility] Last Admin: 08/26/23 08:42 Dose: 70 mg Mirtazapine (Mirtazapine 15 Mg Tablet) 15 mg PO BEDTIME [facility] Last Admin: 08/25/23 20:32 Dose: 15 mg Multivitamins/Vitamin C (Multivitamin Tablet) 1 tab PO DAILY [facility] Last Admin: 08/26/23 08:41 Dose: 1 tab Nicotine Polacrilex (Nicotine Polacrilex 2 Mg Gum) 4 mg BUCCAL Q2H PRN PRN Reason: Nicotine Cravings Oxcarbazepine (Oxcarbazepine 300 Mg Tablet) 300 mg PO BID [facility] Last Admin: 08/26/23 08:41 Dose: 300 mg Quetiapine Fumarate (Quetiapine Fumarate 25 Mg Tablet) 25 mg PO BEDTIME [facility] Last Admin: 08/25/23 20:32 Dose: 25 mg Quetiapine Fumarate (Quetiapine Fumarate 25 Mg Tablet) 25 mg PO DAILY PRN PRN Reason: insomnia, anxiety Sertraline HCl (Sertraline Hcl 50 Mg Tablet) 50 mg PO DAILY [facility] Last Admin: 08/26/23 08:41 Dose: 50 mg Thiamine HCl (Thiamine Hcl 100 Mg Tablet) 100 mg PO DAILY [facility] Last Admin: 08/26/23 08:41 Dose: 100 mg Trazodone HCl (Trazodone Hcl 100 Mg Tablet) 100 mg PO BEDTIME MRX1 PRN PRN Reason: Insomnia Last Admin: 08/25/23 20:53 Dose: 100 mg Allergies Allergies Allergy/AdvReac Type Severity Reaction Status Date / Time No Known Allergies Allergy Unverified 02/19/20 18:38 [No Known Allergies*] Assessment & Plan Assessment & Plan (1) Recurrent major depression: Status: Acute Code(s): F33.9 - Major depressive disorder, recurrent, unspecified Assessment and Plan: Sertraline initiated 08/16/24. 08/21/23: Increase Sertraline to 50 mg daily Increase Trazodone to 100 mg HS (2) Opioid use disorder, severe, on maintenance therapy: Status: Acute Code(s): F11.20 - Opioid dependence, uncomplicated Assessment and Plan: Pt considering CSS placement upon discharge 08/22/23: Discharge 08/23/23 to [facility]. 08/23/23: Pt reporting he is not prepared to discharge. Reports severe anxiety Trileptal 300 mg bid trial for anxiety 08/24/23: Seroquel 25 mg HS and 25 mg daily prn for sleep/anxiety mgt. 08/24: continue current management and treatment plan. 08/25: continue current management and treatment plan. (3) Cocaine use disorder: Status: Acute Code(s): F14.10 - Cocaine abuse, uncomplicated Plan 08/18/2023: Continue current regimen and plans.D/C COW Reason for continued inpatient stay Substantial Risk for: inability to function and rapid decompensation Time Spent With Patient Time: Total time managing care of this patient today ____ minutes.
[2023-08-26] MEDS: Carbamide Peroxide 6.5% Otic 15 ML DRPBTL 5 DROP EAR-BOTH (09:36)
[2023-08-26] MEDS: Ibuprofen 800 MG TABLET PO (11:08)
[2023-08-26] MEDS: Cyclobenzaprine HCl 5 MG TABLET PO (11:08)
[2023-08-26 18:00] VITALS: BP 96/58; PULSE 79; RESP 18; TEMP 36.4; O2SAT 99
[2023-08-26] MEDS: QUEtiapine Fumarate 25 MG TABLET PO (23:01)
[2023-08-26] MEDS: Mirtazapine 15 MG TABLET PO (23:01)
[2023-08-27 08:11] VITALS: BP 111/65; PULSE 75; RESP 16; TEMP 36.4; O2SAT 97
[2023-08-27] MEDS: Sertraline HCL 50 MG TABLET PO (08:16)
[2023-08-27] MEDS: OXcarbazepine 300 MG TABLET PO (08:16)
[2023-08-27] MEDS: Folic Acid 1 MG TABLET PO (08:16)
[2023-08-27] MEDS: methADONE HCl 20 MG/2 ML ORAL.CONC 70 MG PO (08:16)
[2023-08-27] MEDS: Multivitamin TABLET 1 TAB PO (08:16)
[2023-08-27] MEDS: Thiamine HCL 100 MG TABLET PO (08:16)
[2023-08-27] MEDS: Carbamide Peroxide 6.5% Otic 15 ML DRPBTL 5 DROP EAR-LEFT ×2 (10:40→19:53)
--- NOTE | 2023-08-27 10:44 | P.PNPSI_ITS ---
Subjective Subjective Date of Service: 08/27/23 Reason For Visit: crisis Subjective Notes: Conditional Voluntary Healthcare Proxy: No Guardianship: No Medical Problems Affecting Mental Status: No Interim History: Review of medications. Mood remains depressed/anxious. Attending groups which he finds helpful. Apprehensive about finding a new job/career path. Is aware that he has opportunities, however, changes are hard for me. Sleep with some improvement. Pt has decided against [facility] and will return to his home locally Medication adjustments made. Medication Compliance: Yes Side effects from medications: No Attending Groups: Yes Review of Systems Acute medical concerns: No Medical Review of Systems: unchanged Review of Systems Review of Systems Ear wax build up. Reports a alf bump on the back of his head. Will refer to PCP upon discharge. Mental Status Exam Mental Status Exam Patient Appearance: Fatigued Patient Orientation: Person, Place, Time and Situation Level of Consciousness: Alert Patient Behavior: Talkative and Good Eye Contact Mood Description: Depressed and Anxious Affect Description: Flat Patient Cognition Impaired: No Ability to Follow Directions: Good Speech Pattern: Spontaneous Speech Memory Description: Intact Hallucinations: None Delusions: Not Present Thought Process: Rumination Thought Content: positive for Perseveration, positive for Suicidal Ideation (denies) and positive for Homicidal Ideation (denies) Depressive Symptoms: Increased Anxiety, Insomnia, Difficulty Sleeping and Thoughts of /Suicide (denies) Judgement: Good Diagnostics Vital Signs (24Hr): Vital Signs - 24 hr 08/26/23 18:00 08/27/23 08:11 Temperature 97.6 F 97.6 F Pulse Rate 79 75 Respiratory Rate 18 16 Blood Pressure 96/58 L 111/65 Pulse Oximetry 99 97 Oxygen Delivery Method Room Air Room Air BMI result Body Mass Index 19.4 Labs 08/13/23 14:21 08/15/23 08:36 Imaging Radiology Impressions: ITS Impressions Chest X-Ray 08/13/23 14:47 IMPRESSION: * Chronic emphysematous lung disease. * No acute cardiopulmonary abnormality. Medications Medications Current Medications Acetaminophen (Acetaminophen 325 Mg Tablet) 650 mg PO Q6H PRN PRN Reason: Headache/Pain Mild Scale (1-3) Last Admin: 08/19/23 13:29 Dose: 650 mg Al Hydroxide/Mg Hydroxide (Magnesium Hydrox/Alum Hydrox 30 Ml Oral.Susp) 30 ml PO Q6H PRN PRN Reason: Heartburn/Nausea Carbamide Peroxide (Carbamide Peroxide 6.5% Otic 15 Ml Drpbtl) 5 drop EAR-LEFT BID [facility] Stop: 08/31/23 10:31 Last Admin: 08/27/23 10:40 Dose: 5 drop Cyclobenzaprine HCl (Cyclobenzaprine Hcl 5 Mg Tablet) 5 mg PO TID PRN PRN Reason: back pain Last Admin: 08/26/23 11:08 Dose: 5 mg Folic Acid (Folic Acid 1 Mg Tablet) 1 mg PO DAILY [facility] Last Admin: 08/27/23 08:16 Dose: 1 mg Hydroxyzine HCl (Hydroxyzine Hcl 25 Mg Tablet) 25 mg PO TID PRN PRN Reason: anxiety Last Admin: 08/22/23 16:33 Dose: 25 mg Ibuprofen (Ibuprofen 800 Mg Tablet) 800 mg PO Q8H PRN PRN Reason: Pain, Mild (Pain Scale 1-3) Last Admin: 08/26/23 11:08 Dose: 800 mg Magnesium Hydroxide (Milk Of Magnesia 30 Ml Oral.Susp) 30 ml PO DAILY PRN PRN Reason: Constipation Last Admin: 08/19/23 13:32 Dose: 30 ml Methadone HCl (Methadone Hcl 20 Mg/2 Ml Oral.Conc) 70 mg PO DAILY [facility] Last Admin: 08/27/23 08:16 Dose: 70 mg Mirtazapine (Mirtazapine 15 Mg Tablet) 15 mg PO BEDTIME [facility] Last Admin: 08/26/23 23:01 Dose: 15 mg Multivitamins/Vitamin C (Multivitamin Tablet) 1 tab PO DAILY [facility] Last Admin: 08/27/23 08:16 Dose: 1 tab Nicotine Polacrilex (Nicotine Polacrilex 2 Mg Gum) 4 mg BUCCAL Q2H PRN PRN Reason: Nicotine Cravings Oxcarbazepine (Oxcarbazepine 300 Mg Tablet) 300 mg PO BID [facility] Last Admin: 08/27/23 08:16 Dose: 300 mg Quetiapine Fumarate (Quetiapine Fumarate 25 Mg Tablet) 25 mg PO BEDTIME [facility] Last Admin: 08/26/23 23:01 Dose: 25 mg Quetiapine Fumarate (Quetiapine Fumarate 25 Mg Tablet) 25 mg PO DAILY PRN PRN Reason: insomnia, anxiety Sertraline HCl (Sertraline Hcl 50 Mg Tablet) 50 mg PO DAILY [facility] Last Admin: 08/27/23 08:16 Dose: 50 mg Thiamine HCl (Thiamine Hcl 100 Mg Tablet) 100 mg PO DAILY [facility] Last Admin: 08/27/23 08:16 Dose: 100 mg Trazodone HCl (Trazodone Hcl 100 Mg Tablet) 100 mg PO BEDTIME MRX1 PRN PRN Reason: Insomnia Last Admin: 08/25/23 20:53 Dose: 100 mg Allergies Allergies Allergy/AdvReac Type Severity Reaction Status Date / Time No Known Allergies Allergy Unverified 02/19/20 18:38 [No Known Allergies*] Assessment & Plan Assessment & Plan (1) Recurrent major depression: Status: Acute Code(s): F33.9 - Major depressive disorder, recurrent, unspecified Assessment and Plan: Sertraline initiated 08/16/24. 08/21/23: Increase Sertraline to 50 mg daily Increase Trazodone to 100 mg HS (2) Opioid use disorder, severe, on maintenance therapy: Status: Acute Code(s): F11.20 - Opioid dependence, uncomplicated Assessment and Plan: Pt considering CSS placement upon discharge 08/22/23: Discharge 08/23/23 to [facility]. 08/23/23: Pt reporting he is not prepared to discharge. Reports severe anxiety Trileptal 300 mg bid trial for anxiety 08/24/23: Seroquel 25 mg HS and 25 mg daily prn for sleep/anxiety mgt. 08/24: continue current management and treatment plan. 08/25: continue current management and treatment plan. 08/26: Increase Seroquel to 25 mg bid and 50 mg hs Increase Sertraline to 100 mg daily Trileptal tapering as pt finds this ineffective. (3) Cocaine use disorder: Status: Acute Code(s): F14.10 - Cocaine abuse, uncomplicated Plan 08/18/2023: Continue current regimen and plans.D/C COW Patient educated on: medication risk/benefits Informed Consent: understands Reason for continued inpatient stay Substantial Risk for: rapid decompensation Time Spent With Patient Time: Total time managing care of this patient today ____ minutes.
[2023-08-27] MEDS: QUEtiapine Fumarate 25 MG TABLET PO ×2 (12:00→16:40)
[2023-08-27] MEDS: Cyclobenzaprine HCl 5 MG TABLET PO (15:56)
[2023-08-27] MEDS: Ibuprofen 800 MG TABLET PO (15:56)
[2023-08-27 18:00] VITALS: BP 93/57; PULSE 89; RESP 16; TEMP 36.8; O2SAT 97
[2023-08-27] MEDS: QUEtiapine Fumarate 50 MG TABLET PO (19:53)
[2023-08-27] MEDS: Mirtazapine 15 MG TABLET PO (19:53)
[2023-08-28] MEDS: Folic Acid 1 MG TABLET PO (07:58)
[2023-08-28] MEDS: QUEtiapine Fumarate 25 MG TABLET PO ×2 (07:58→14:25)
[2023-08-28] MEDS: Thiamine HCL 100 MG TABLET PO (07:58)
[2023-08-28] MEDS: Sertraline HCL 100 MG TABLET PO (07:58)
[2023-08-28] MEDS: Multivitamin TABLET 1 TAB PO (07:58)
[2023-08-28] MEDS: OXcarbazepine 300 MG TABLET PO (07:59)
[2023-08-28] MEDS: methADONE HCl 20 MG/2 ML ORAL.CONC 70 MG PO (07:59)
[2023-08-28 08:06] VITALS: BP 131/74; PULSE 75; RESP 16; TEMP 36.6; O2SAT 98
[2023-08-28] MEDS: Carbamide Peroxide 6.5% Otic 15 ML DRPBTL 5 DROP EAR-LEFT ×2 (11:39→22:16)
--- NOTE | 2023-08-28 12:28 | P.PNPSI_ITS ---
Subjective Subjective Date of Service: 08/28/23 Reason For Visit: crisis Subjective Notes: Conditional Voluntary Healthcare Proxy: No Guardianship: No Medical Problems Affecting Mental Status: No Interim History: Pt reports feeling improved. Discussed aftercare planning. Will return to his own apt in [place] upon discharge he reports. Will discuss with Methadone provider Yajaira at [facility] psychotherapy, medicine, group referrals. We will make appt with new PCP Mary Jalloh [phone] ([facility]).Anne from nursing team assisted pt with ear wax removal with success. Review of medications, plan. Pt in agreement. Plans discharge for 08/29. Medication Compliance: Yes Side effects from medications: No Attending Groups: Yes Review of Systems Acute medical concerns: No Medical Review of Systems: unchanged Review of Systems Review of Systems Ear Wax removal with Anne STEPHENS of nursing today. Mental Status Exam Mental Status Exam Patient Appearance: Appropriate Patient Orientation: Person, Place, Time and Situation Level of Consciousness: Alert Patient Behavior: Talkative and Good Eye Contact Mood Description: Anxious and Apprehensive Affect Description: Flat Patient Cognition Impaired: No Ability to Follow Directions: Good Speech Pattern: Spontaneous Speech Memory Description: Intact Hallucinations: None Delusions: Not Present Thought Process: Rumination Thought Content: positive for Perseveration, positive for Suicidal Ideation (denies) and positive for Homicidal Ideation (denies) Depressive Symptoms: Increased Anxiety, Insomnia, Difficulty Sleeping and Thoughts of /Suicide (denies) Judgement: Good Diagnostics Vital Signs (24Hr): Vital Signs - 24 hr 08/27/23 18:00 08/28/23 08:06 Temperature 98.2 F 97.8 F Pulse Rate 89 75 Respiratory Rate 16 16 Blood Pressure 93/57 L 131/74 Pulse Oximetry 97 98 Oxygen Delivery Method Room Air Room Air BMI result Body Mass Index 19.4 Labs 08/13/23 14:21 08/15/23 08:36 Imaging Radiology Impressions: ITS Impressions Chest X-Ray 08/13/23 14:47 IMPRESSION: * Chronic emphysematous lung disease. * No acute cardiopulmonary abnormality. Medications Medications Current Medications Acetaminophen (Acetaminophen 325 Mg Tablet) 650 mg PO Q6H PRN PRN Reason: Headache/Pain Mild Scale (1-3) Last Admin: 08/19/23 13:29 Dose: 650 mg Al Hydroxide/Mg Hydroxide (Magnesium Hydrox/Alum Hydrox 30 Ml Oral.Susp) 30 ml PO Q6H PRN PRN Reason: Heartburn/Nausea Carbamide Peroxide (Carbamide Peroxide 6.5% Otic 15 Ml Drpbtl) 5 drop EAR-LEFT BID [facility] Stop: 08/31/23 10:31 Last Admin: 08/28/23 11:39 Dose: 5 drop Cyclobenzaprine HCl (Cyclobenzaprine Hcl 5 Mg Tablet) 5 mg PO TID PRN PRN Reason: back pain Last Admin: 08/27/23 15:56 Dose: 5 mg Folic Acid (Folic Acid 1 Mg Tablet) 1 mg PO DAILY [facility] Last Admin: 08/28/23 07:58 Dose: 1 mg Hydroxyzine HCl (Hydroxyzine Hcl 25 Mg Tablet) 25 mg PO TID PRN PRN Reason: anxiety Last Admin: 08/22/23 16:33 Dose: 25 mg Ibuprofen (Ibuprofen 800 Mg Tablet) 800 mg PO Q8H PRN PRN Reason: Pain, Mild (Pain Scale 1-3) Last Admin: 08/27/23 15:56 Dose: 800 mg Magnesium Hydroxide (Milk Of Magnesia 30 Ml Oral.Susp) 30 ml PO DAILY PRN PRN Reason: Constipation Last Admin: 08/19/23 13:32 Dose: 30 ml Methadone HCl (Methadone Hcl 20 Mg/2 Ml Oral.Conc) 70 mg PO DAILY [facility] Last Admin: 08/28/23 07:59 Dose: 70 mg Mirtazapine (Mirtazapine 15 Mg Tablet) 15 mg PO BEDTIME [facility] Last Admin: 08/27/23 19:53 Dose: 15 mg Multivitamins/Vitamin C (Multivitamin Tablet) 1 tab PO DAILY [facility] Last Admin: 08/28/23 07:58 Dose: 1 tab Nicotine Polacrilex (Nicotine Polacrilex 2 Mg Gum) 4 mg BUCCAL Q2H PRN PRN Reason: Nicotine Cravings Oxcarbazepine (Oxcarbazepine 300 Mg Tablet) 300 mg PO DAILY [facility] Stop: 08/30/23 09:00 Last Admin: 08/28/23 07:59 Dose: 300 mg Quetiapine Fumarate (Quetiapine Fumarate 25 Mg Tablet) 25 mg PO DAILY PRN PRN Reason: insomnia, anxiety Last Admin: 08/27/23 12:00 Dose: 25 mg Quetiapine Fumarate (Quetiapine Fumarate 50 Mg Tablet) 50 mg PO BEDTIME [facility] Last Admin: 08/27/23 19:53 Dose: 50 mg Quetiapine Fumarate (Quetiapine Fumarate 25 Mg Tablet) 25 mg PO 0900,1500 [facility] Last Admin: 08/28/23 07:58 Dose: 25 mg Sertraline HCl (Sertraline Hcl 100 Mg Tablet) 100 mg PO DAILY [facility] Last Admin: 08/28/23 07:58 Dose: 100 mg Thiamine HCl (Thiamine Hcl 100 Mg Tablet) 100 mg PO DAILY [facility] Last Admin: 08/28/23 07:58 Dose: 100 mg Trazodone HCl (Trazodone Hcl 100 Mg Tablet) 100 mg PO BEDTIME MRX1 PRN PRN Reason: Insomnia Last Admin: 08/25/23 20:53 Dose: 100 mg Allergies Allergies Allergy/AdvReac Type Severity Reaction Status Date / Time No Known Allergies Allergy Unverified 02/19/20 18:38 [No Known Allergies*] Assessment & Plan Assessment & Plan (1) Recurrent major depression: Status: Acute Code(s): F33.9 - Major depressive disorder, recurrent, unspecified Assessment and Plan: Sertraline initiated 08/16/24. 08/21/23: Increase Sertraline to 50 mg daily Increase Trazodone to 100 mg HS (2) Opioid use disorder, severe, on maintenance therapy: Status: Acute Code(s): F11.20 - Opioid dependence, uncomplicated Assessment and Plan: Pt considering CSS placement upon discharge 08/22/23: Discharge 08/23/23 to [facility]. 08/23/23: Pt reporting he is not prepared to discharge. Reports severe anxiety Trileptal 300 mg bid trial for anxiety 08/24/23: Seroquel 25 mg HS and 25 mg daily prn for sleep/anxiety mgt. 08/24: continue current management and treatment plan. 08/25: continue current management and treatment plan. (3) Cocaine use disorder: Status: Acute Code(s): F14.10 - Cocaine abuse, uncomplicated Plan 08/18/2023: Continue current regimen and plans.D/C COW Patient educated on: medication risk/benefits and therapeutic strategies Informed Consent: understands Reason for continued inpatient stay Substantial Risk for: rapid decompensation Time Spent With Patient Time: Total time managing care of this patient today ____ minutes.
[2023-08-28] MEDS: Cyclobenzaprine HCl 5 MG TABLET PO ×2 (14:24→22:16)
[2023-08-28] MEDS: Ibuprofen 800 MG TABLET PO (14:24)
[2023-08-28 18:00] VITALS: BP 104/62; PULSE 90; RESP 20; TEMP 36.5; O2SAT 97
[2023-08-28] MEDS: Mirtazapine 15 MG TABLET PO (21:02)
[2023-08-28] MEDS: hydrOXYzine HCL 25 MG TABLET PO (22:16)
[2023-08-28] MEDS: traZODone HCL 100 MG TABLET PO (22:17)
[2023-08-28] MEDS: QUEtiapine Fumarate 50 MG TABLET PO (22:17)
[2023-08-29] MEDS: methADONE HCl 20 MG/2 ML ORAL.CONC 70 MG PO (08:42)
[2023-08-29] MEDS: OXcarbazepine 300 MG TABLET PO (08:43)
[2023-08-29] MEDS: Thiamine HCL 100 MG TABLET PO (08:43)
[2023-08-29] MEDS: Sertraline HCL 100 MG TABLET PO (08:43)
[2023-08-29] MEDS: Multivitamin TABLET 1 TAB PO (08:43)
[2023-08-29] MEDS: QUEtiapine Fumarate 25 MG TABLET PO ×2 (08:43→15:02)
[2023-08-29] MEDS: Folic Acid 1 MG TABLET PO (08:43)
[2023-08-29 10:00] VITALS: BP 138/72; PULSE 78; RESP 16; TEMP 36.5; O2SAT 97
[2023-08-29] MEDS: Ibuprofen 800 MG TABLET PO (12:32)
[2023-08-29] MEDS: Cyclobenzaprine HCl 5 MG TABLET PO (12:32)
[2023-08-29] MEDS: Carbamide Peroxide 6.5% Otic 15 ML DRPBTL 5 DROP EAR-LEFT (13:11)
--- NOTE | 2023-08-29 14:36 | P.PNPSI_ITS ---
Subjective Subjective Date of Service: 08/29/23 Reason For Visit: crisis Subjective Notes: Conditional Voluntary Healthcare Proxy: No Guardianship: No Medical Problems Affecting Mental Status: No Interim History: Pt preparing for discharge. Review of medications. Pt reports no depressive sx, mild anxiety. He asks about ADHD medication. Discussed low dose Wellbutrin trial which he would like to try as an outpatient-will send a low dose for him to begin. Discussed SE potential. Pt plans to discharge to his apartment and has options for work which he will check in to. [facility] he will consider if he finds his personal options are not adequate for current needs. Medication Compliance: Yes Side effects from medications: No Attending Groups: Yes Review of Systems Acute medical concerns: No Medical Review of Systems: unchanged Review of Systems Review of Systems Yes all other systems are reviewed and are negative Mental Status Exam Mental Status Exam Patient Appearance: Appropriate Patient Orientation: Person, Place, Time and Situation Level of Consciousness: Alert Patient Behavior: Talkative and Good Eye Contact Mood Description: Apprehensive Affect Description: Apprehensive Patient Cognition Impaired: No Ability to Follow Directions: Good Speech Pattern: Spontaneous Speech Memory Description: Intact Hallucinations: None Delusions: Not Present Thought Process: Rumination Thought Content: positive for Perseveration, positive for Suicidal Ideation (denies) and positive for Homicidal Ideation (denies) Depressive Symptoms: Increased Anxiety, Insomnia, Difficulty Sleeping and Thoughts of /Suicide (denies) Judgement: Good Diagnostics Vital Signs (24Hr): Vital Signs - 24 hr 08/28/23 18:00 08/29/23 10:00 Temperature 97.7 F 97.7 F Pulse Rate 90 78 Respiratory Rate 20 16 Blood Pressure 104/62 138/72 Pulse Oximetry 97 97 Oxygen Delivery Method Room Air Room Air BMI result Body Mass Index 19.4 Labs 08/13/23 14:21 08/15/23 08:36 Imaging Radiology Impressions: ITS Impressions Chest X-Ray 08/13/23 14:47 IMPRESSION: * Chronic emphysematous lung disease. * No acute cardiopulmonary abnormality. Medications Medications Current Medications Acetaminophen (Acetaminophen 325 Mg Tablet) 650 mg PO Q6H PRN PRN Reason: Headache/Pain Mild Scale (1-3) Last Admin: 08/19/23 13:29 Dose: 650 mg Al Hydroxide/Mg Hydroxide (Magnesium Hydrox/Alum Hydrox 30 Ml Oral.Susp) 30 ml PO Q6H PRN PRN Reason: Heartburn/Nausea Carbamide Peroxide (Carbamide Peroxide 6.5% Otic 15 Ml Drpbtl) 5 drop EAR-LEFT BID [facility] Stop: 08/31/23 10:31 Last Admin: 08/29/23 13:11 Dose: 5 drop Cyclobenzaprine HCl (Cyclobenzaprine Hcl 5 Mg Tablet) 5 mg PO TID PRN PRN Reason: back pain Last Admin: 08/29/23 12:32 Dose: 5 mg Folic Acid (Folic Acid 1 Mg Tablet) 1 mg PO DAILY [facility] Last Admin: 08/29/23 08:43 Dose: 1 mg Hydroxyzine HCl (Hydroxyzine Hcl 25 Mg Tablet) 25 mg PO TID PRN PRN Reason: anxiety Last Admin: 08/28/23 22:16 Dose: 25 mg Ibuprofen (Ibuprofen 800 Mg Tablet) 800 mg PO Q8H PRN PRN Reason: Pain, Mild (Pain Scale 1-3) Last Admin: 08/29/23 12:32 Dose: 800 mg Magnesium Hydroxide (Milk Of Magnesia 30 Ml Oral.Susp) 30 ml PO DAILY PRN PRN Reason: Constipation Last Admin: 08/19/23 13:32 Dose: 30 ml Methadone HCl (Methadone Hcl 20 Mg/2 Ml Oral.Conc) 70 mg PO DAILY [facility] Last Admin: 08/29/23 08:42 Dose: 70 mg Mirtazapine (Mirtazapine 15 Mg Tablet) 15 mg PO BEDTIME [facility] Last Admin: 08/28/23 21:02 Dose: 15 mg Multivitamins/Vitamin C (Multivitamin Tablet) 1 tab PO DAILY [facility] Last Admin: 08/29/23 08:43 Dose: 1 tab Nicotine Polacrilex (Nicotine Polacrilex 2 Mg Gum) 4 mg BUCCAL Q2H PRN PRN Reason: Nicotine Cravings Oxcarbazepine (Oxcarbazepine 300 Mg Tablet) 300 mg PO DAILY [facility] Stop: 08/30/23 09:00 Last Admin: 08/29/23 08:43 Dose: 300 mg Quetiapine Fumarate (Quetiapine Fumarate 25 Mg Tablet) 25 mg PO DAILY PRN PRN Reason: insomnia, anxiety Last Admin: 08/27/23 12:00 Dose: 25 mg Quetiapine Fumarate (Quetiapine Fumarate 25 Mg Tablet) 25 mg PO 0900,1500 [facility] Last Admin: 08/29/23 08:43 Dose: 25 mg Quetiapine Fumarate (Quetiapine Fumarate 50 Mg Tablet) 50 mg PO DAILY@2230 [facility] Last Admin: 08/28/23 22:17 Dose: 50 mg Sertraline HCl (Sertraline Hcl 100 Mg Tablet) 100 mg PO DAILY [facility] Last Admin: 08/29/23 08:43 Dose: 100 mg Thiamine HCl (Thiamine Hcl 100 Mg Tablet) 100 mg PO DAILY [facility] Last Admin: 08/29/23 08:43 Dose: 100 mg Trazodone HCl (Trazodone Hcl 100 Mg Tablet) 100 mg PO BEDTIME MRX1 PRN PRN Reason: Insomnia Last Admin: 08/28/23 22:17 Dose: 100 mg Allergies Allergies Allergy/AdvReac Type Severity Reaction Status Date / Time No Known Allergies Allergy Unverified 02/19/20 18:38 [No Known Allergies*] Assessment & Plan Assessment & Plan (1) Recurrent major depression: Status: Acute Code(s): F33.9 - Major depressive disorder, recurrent, unspecified Assessment and Plan: Sertraline initiated 08/16/24. 08/21/23: Increase Sertraline to 50 mg daily Increase Trazodone to 100 mg HS (2) Opioid use disorder, severe, on maintenance therapy: Status: Acute Code(s): F11.20 - Opioid dependence, uncomplicated Assessment and Plan: Pt considering CSS placement upon discharge 08/22/23: Discharge 08/23/23 to [facility]. 08/23/23: Pt reporting he is not prepared to discharge. Reports severe anxiety Trileptal 300 mg bid trial for anxiety 08/24/23: Seroquel 25 mg HS and 25 mg daily prn for sleep/anxiety mgt. 08/24: continue current management and treatment plan. 08/25: continue current management and treatment plan. 08/26: Increase Seroquel to 25 mg bid and 50 mg hs Increase Sertraline to 100 mg daily Trileptal tapering as pt finds this ineffective. 08/28: Discharge 08/30/23. (3) Cocaine use disorder: Status: Acute Code(s): F14.10 - Cocaine abuse, uncomplicated Plan 08/18/2023: Continue current regimen and plans.D/C COW Patient educated on: medication risk/benefits and therapeutic strategies Informed Consent: understands Reason for continued inpatient stay Substantial Risk for: stable for discharge Time Spent With Patient Time: Total time managing care of this patient today ____ minutes.
[2023-08-29 16:35] VITALS: BP 97/55; PULSE 84; RESP 16; TEMP 36.6; O2SAT 99
[2023-08-29] MEDS: Mirtazapine 15 MG TABLET PO (22:18)
[2023-08-29] MEDS: traZODone HCL 100 MG TABLET PO (22:18)
[2023-08-29] MEDS: QUEtiapine Fumarate 50 MG TABLET PO (22:19)
[2023-08-30] MEDS: QUEtiapine Fumarate 25 MG TABLET PO (09:26)
[2023-08-30] MEDS: Multivitamin TABLET 1 TAB PO (09:26)
[2023-08-30] MEDS: Thiamine HCL 100 MG TABLET PO (09:26)
[2023-08-30] MEDS: OXcarbazepine 300 MG TABLET PO (09:26)
[2023-08-30] MEDS: methADONE HCl 20 MG/2 ML ORAL.CONC 70 MG PO (09:26)
[2023-08-30] MEDS: Folic Acid 1 MG TABLET PO (09:26)
[2023-08-30] MEDS: Sertraline HCL 100 MG TABLET PO (09:26)
[2023-08-30 09:30] VITALS: BP 117/69; PULSE 77; RESP 16; TEMP 36.6; O2SAT 97
--- NOTE | 2023-08-30 14:04 | PM.PSYDC ---
DS: Providers Provider Date of Service: 08/30/23 Date of admission: 08/14/23 12:01 Date of discharge: 08/30/23 Primary care physician: Unknown Physician Admitting clinician: Jessica Jose Attending physician on admission: Franklin Sanchez Consults: 08/16/23 09:52 Consult to Cardiology Routine Consulting Provider: [facility] – [place] Cardiovascular Services Reason for consultation: Atrial Fibrillation Has provider been notified: Yes 08/16/23 17:31 Addiction Medicine Routine Consulting Provider: Addiction Covering Reason for consultation: Recovery coaching Has provider been notified: No Attending physician on discharge: Franklin Sanchez Discharging clinician: Jessica Jose DS: Diagnosis Discharge Diagnosis (1) Recurrent major depression: Status: Inactive (2) Opioid use disorder, severe, on maintenance therapy: Status: Acute (3) Cocaine use disorder: Status: Acute DS: Medications Discharge Medications Home Medications: Previous Rx's Medication Instructions Recorded methadone 10 mg/mL oral 70 mg (7 mL) PO DAILY #0 mL 08/22/23 concentrate (Methadose) folic acid 1 mg tablet 1 mg PO DAILY #30 tabs 08/29/23 mirtazapine 15 mg tablet 15 mg PO BEDTIME #30 tabs 08/29/23 multivitamin 1 tab PO DAILY #30 tabs 08/29/23 quetiapine 25 mg tablet 25 mg PO 0900,1500 #90 tabs 08/29/23 quetiapine 25 mg tablet 25 mg PO DAILY PRN insomnia, 08/29/23 anxiety #0 tabs quetiapine 50 mg tablet 50 mg PO DAILY@2230 #30 tabs 08/29/23 sertraline 100 mg tablet 100 mg PO DAILY #30 tabs 08/29/23 thiamine HCl (vitamin B1) 100 mg 100 mg PO DAILY #30 tabs 08/29/23 tablet bupropion HCl 75 mg tablet 75 mg PO DAILY #30 tabs 08/30/23 Mental Status Exam Mental Status Exam Patient Appearance: Appropriate Patient Orientation: Person, Place, Time and Situation Level of Consciousness: Alert Patient Behavior: Talkative and Good Eye Contact Mood Description: Apprehensive Affect Description: Apprehensive Patient Cognition Impaired: No Ability to Follow Directions: Good Speech Pattern: Spontaneous Speech Memory Description: Intact Hallucinations: None Delusions: Not Present Thought Process: Rumination Thought Content: positive for Perseveration, positive for Suicidal Ideation (denies) and positive for Homicidal Ideation (denies) Depressive Symptoms: Increased Anxiety, Insomnia, Difficulty Sleeping and Thoughts of /Suicide (denies) Judgement: Good Data Data Completed and Pending Completed studies during hospitalization [Text1]: 08/13/23 14:31 Blood - Venous Blood Culture - Final No growth after 5 days. 08/13/23 14:21 Blood - Venous Blood Culture - Final No growth after 5 days. Imaging Diagnostic Imaging Impressions Chest X-Ray 08/13/23 14:47 IMPRESSION: * Chronic emphysematous lung disease. * No acute cardiopulmonary abnormality. 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 Medications were evaluated and adjusted. Cardiology met with pt and out pt follow up was scheduled post discharge. Therapy and pharmacology appointments were arranged with [facility]. Pt plans to return home and has resource numbers to contact should he reconsider CSS placement. Status at Discharge Functional status at discharge: independent ambulation Overall status at discharge: patient is progressing back to baseline Time Spent with Patient Time attestation: Total time managing care of this patient today ____ minutes. Time spent: Less than 30 minutes Discharge Plan Discharge Anticipated Discharge Date/Time: 08/30/23 12:00 Patient Disposition: Home, Self-Care Discharge Diagnosis: Recurrent Major Depression Opiate Use Disorder Cocaine Use Disorder Atrial Fibrillation Referrals: [facility] [Other] - 1 Week (Patient was Referred to [facility] for substance use treatment program) [facility] [Other] - 09/05/23 11:00 am (Initial Diagnostic intake for therapy services Appointment in office at [facility]) Moe: Sterilization Tech [Other] - 1 Week (Sterilization Tech Referral) [facility]: Sandra Riley (psychiatry) [Other] - 09/25/23 10:00 am (Initial psychiatric evaluation for medication management Appointment is by tele-health. Check your email for a link to the appointment. Call [facility] should you need assistance with appointment ) [facility]: Sandra Riley (psychiatry) [Other] - 10/23/23 12:00 pm (Follow-up appointment for medication management Appointment is by tele-health. Check your email for a link to the appointment. Call [facility] should you need assistance with appointment ) Waldemar Hernandez MD [Physician] - 09/11/23 1:30 pm (in office) Physician,Cynthia J [Primary Care Provider] - 1 Week Discharge Medications: Discontinued hydroxyzine HCl 25 mg tablet 25 mg PO TID PRN (Reason: anxiety) mirtazapine 15 mg tablet 15 mg PO BEDTIME No Action quetiapine 50 mg Tablet 50 mg PO 0900,1500 30 Days Qty: 60 0RF quetiapine 100 mg Tablet 100 mg PO DAILY@2230 30 Days Qty: 30 0RF methadone [Methadose] 10 mg/mL Concentrate 85 mg PO DAILY Qty: 0 0RF Rx Instructions: Partial Fill upon patient request. hydroxyzine HCl 25 mg Tablet 25 mg PO BID PRN (Reason: anxiety) 30 Days Qty: 60 0RF sertraline 100 mg Tablet 100 mg PO DAILY 30 Days Qty: 30 0RF bupropion HCl 75 mg tablet 75 mg PO DAILY 30 Days Qty: 30 0RF Rx Instructions: administer 6 hours apart mirtazapine 15 mg tablet 15 mg PO BEDTIME 30 Days Qty: 30 0RF Discharge Orders: Discharge Order (Routine); Ordered 08/30/23 Ordered By: Jessica Jose Diet: Advance to usual diet Activity on Discharge: As tolerated Stand Alone Forms: Patient Portal Discharge page, Community Support Print Language: Albanian Care Plan Goals: Mood and Behavioral Stabilization Work on Sobriety Health Concerns: Mood and Behavioral Stabilization Work on Sobriety Plan of Treatment: Attend scheduled appointments Take medications as directed Assessment: Pt interviewed prior to discharge and found to be fully oriented and without SI/HI. Pt has insight and demonstrates good judgment in terms of wanting to pursue treatment. Pt is not in imminent risk of harm to self or others and has a safety plan that includes presenting to the closest ER or calling 911 if feeling unsafe. Pt has been observed closely by nursing and unit staff throughout admission. Pt has not engaged in any behaviors that suggest dangerousness to self or others and has demonstrated appropriate behaviors and impulse control. Patient Instructions: A-fib (Atrial Fibrillation) (GEN) Discharge Date/Time: 08/30/23 11:55
== END 2023-08-30 11:55 | disposition home or self-care (01) | DRG 751 ==
LOC: HO.ED 08-14 06:49 → HO.PM5 08-14 12:07
PROVIDERS: Physician Assistant Medical; Admitting Provider Registered Nurse; Emergency Provider Emergency Medicine Emergency Medical Services; Visit Provider Clinical Nurse Specialist Psychiatric/Mental Health, Adult
DX: F33.9 Major depressive disorder, recurrent, unspecified (principal); R45.851 Suicidal ideations; I48.19 Other persistent atrial fibrillation; R45.850 Homicidal ideations; F11.20 Opioid dependence, uncomplicated; F14.10 Cocaine abuse, uncomplicated; F17.210 Nicotine dependence, cigarettes, uncomplicated; Z71.6 Tobacco abuse counseling; Z20.822 Contact with and (suspected) exposure to COVID-19; Z79.899 Other long term (current) drug therapy
CPT/HCPCS: 0241U; 36415; 71045; 80053; 80061; 80307; 81003; 82306; 82607; 82746; 83540; 83605; 83690; 83735; 84443; 84484; 85025; 85610; 85730; 87040; 93005; 99285; S9485

== ENCOUNTER → 2023-08-13 13:50 | Outpatient (BNV) | payer OTHER, SELFPAY | PROVIDERS: Emergency Provider Emergency Medicine; Visit Provider Internal Medicine Cardiovascular Disease | DX: I48.91 Unspecified atrial fibrillation (principal) | CPT/HCPCS: 93010 ==

== ENCOUNTER 2023-08-14 12:01 | Outpatient (BNV) | payer OTHER, SELFPAY | END 2023-08-15 13:27 | PROVIDERS: Admitting Provider Registered Nurse; Emergency Provider Emergency Medicine Emergency Medical Services; Visit Provider Internal Medicine Cardiovascular Disease | DX: I48.91 Unspecified atrial fibrillation (principal) | CPT/HCPCS: 93010 ==

== ENCOUNTER → 2023-08-14 12:01 | Outpatient (BNV) | payer OTHER, SELFPAY | PROVIDERS: Admitting Provider Registered Nurse; Emergency Provider Emergency Medicine Emergency Medical Services; Visit Provider Clinical Nurse Specialist Psychiatric/Mental Health, Adult | DX: F33.2 Major depressive disorder, recurrent severe without psychotic features (principal); F11.20 Opioid dependence, uncomplicated; F14.10 Cocaine abuse, uncomplicated | CPT/HCPCS: 90792; 99231; 99232; 99238 ==

== ENCOUNTER → 2023-08-14 12:01 | Outpatient (BNV) | payer OTHER, SELFPAY | PROVIDERS: Admitting Provider Registered Nurse; Emergency Provider Emergency Medicine Emergency Medical Services; Visit Provider Internal Medicine Cardiovascular Disease | DX: I48.19 Other persistent atrial fibrillation (principal) | CPT/HCPCS: 99222 ==

== ENCOUNTER 2023-09-13 11:26 | Inpatient (IN) | payer OTHER, SELFPAY ==
--- NOTE | 2023-09-13 | ECG_ITS ---
Test Reason : QT INTERVAL Blood Pressure : / mmHG Vent. Rate : 059 BPM Atrial Rate : 000 BPM P-R Int : 000 ms QRS Dur : 084 ms QT Int : 480 ms P-R-T Axes : 000 085 081 degrees QTc Int : 475 ms Atrial fibrillation with slow ventricular response Abnormal ECG When compared with ECG of 15-AUG-2023 13:27, Nonspecific T wave abnormality no longer evident in Inferior leads Referred By: Sandra Ohara Electronically Signed By:Wellington Israel
[2023-09-13 11:35] VITALS: BP 100/50; BP 95/52; PULSE 63; PULSE 66; RESP 14; TEMP 36.6; O2SAT 100; O2SAT 99; BMI 18.0
--- NOTE | 2023-09-13 11:42 | PC.NURSE ---
pt presents to the pod as an expect via EMS after being [place] [facility] [place] pt brought in today after attempting to see N for suicidal ideation w/o a plan. pt currently denies SI/HI for this information writer. [facility] called [facility] who then brought pt here. pt presents as a&ox4 but seemingly drowsy d/t smokng 1 bag of crack cocaine MESS COOK. pt follows commands appropriately. neuros intact. 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 pt changed over/belongings searched by security. pt dressed in ligature free/hospital attire. belongings placed in locker #3. urine obtained/sent to lab. pt currently resting in room w/ lights dimmed speaking w/ Shireen from CARE team. no sob/wob noted. respirations even and unlabored. plan of care ongoing.
[2023-09-13 12:25] LABS: Amphetamine Screen Urine Not Detected (Not Detect); Barbiturates, Urine Not Detected (Not Detect); Benzodiazepines Screen Urine Not Detected (Not Detect); Cannabinoid Screen Urine Not Detected (Not Detect); Cocaine Screen Urine POSITIVE (Not Detect); Fentanyl, urine POSITIVE (Not Detect); Opiate Screen Urine POSITIVE (Not Detect); Phencyclidine Screen Urine Not Detected (Not Detect)
[2023-09-13 12:34] LABS: Appearance Urine Clear; Color Urine Yellow; Glucose Urine UA Negative (Negative); Leukocyte Esterase Urine Negative (Negative); Nitrite Urine Negative (Negative); PH 5.5 (5.0-9.0); Specific Gravity - Urine 1.025 (1.005-1.025); Urine Blood Negative (Negative); Urine Ketones Negative (Negative); Urine Protein Negative (Neg-Trace)
[2023-09-13 12:39] LABS: Bacteria Urine None Seen (None Seen); Hyaline Casts Urine 0-2 /LPF (0-2); RBC Urine 0-2 /HPF (0-2); Squamous Epithelial Cell Urine 0-2 /HPF (0-2); WBC Urine 0-5 /HPF (0-5)
[2023-09-13 12:41] LABS: MANUAL DIFF FLAG NO
--- NOTE | 2023-09-13 12:43 | ED_ITS ---
HPI - Psych General Chief Complaint: Psychiatric Symptoms Stated Complaint: SI NO PLAN,FROM [facility],CALM/COOP PER EMS Time Seen by Provider: 09/13/23 12:20 Source: patient and other History of Present Illness HPI Narrative: 48 Year old male who was recently evaluated here at our facility and returns from the behavioral at work with complaints of suicide to certain staff that has denied SI/HI to our staff and reports smoking crack cocaine this morning. Related Data Home Medications ?Medication ?Instructions ?Recorded ?Confirmed hydroxyzine HCl 25 mg tablet 25 mg PO TID PRN anxiety 09/13/23 09/13/23 Previous Rx's ?Medication ?Instructions ?Recorded methadone 10 mg/mL oral 70 mg (7 mL) PO DAILY #0 mL 08/22/23 concentrate (Methadose) folic acid 1 mg tablet 1 mg PO DAILY #30 tabs 08/29/23 mirtazapine 15 mg tablet 15 mg PO BEDTIME #30 tabs 08/29/23 multivitamin 1 tab PO DAILY #30 tabs 08/29/23 quetiapine 25 mg tablet 25 mg PO 0900,1500 #90 tabs 08/29/23 quetiapine 25 mg tablet 25 mg PO DAILY PRN insomnia, 08/29/23 anxiety #0 tabs quetiapine 50 mg tablet 50 mg PO DAILY@2230 #30 tabs 08/29/23 sertraline 100 mg tablet 100 mg PO DAILY #30 tabs 08/29/23 thiamine HCl (vitamin B1) 100 mg 100 mg PO DAILY #30 tabs 08/29/23 tablet bupropion HCl 75 mg tablet 75 mg PO DAILY #30 tabs 08/30/23 Allergies Allergy/AdvReac Type Severity Reaction Status Date / Time No Known Allergies Allergy Verified 09/13/23 11:36 [No Known Allergies*] Review of Systems 2 Review of Systems: Pertinent positives and negatives as stated in HPI PMFSH Past Medical History Source: nursing notes reviewed Medical History Cocaine use disorder Opioid use disorder, severe, on maintenance therapy Recurrent major depression Social History Social History Household Members: None Housing: Other Housing Other:: 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 Do you presently have visiting nurse or other home services: No Patient Tobacco Use Status: Current everyday Tobacco user Tobacco use type: Cigarette Cigarette Packs Per Day: 1 Cigarettes Per Day: 20.0 Years Smoked: 30 Second Hand Smoke Exposure: Yes Substance Use Type: Crack/Cocaine, Heroin and Marijuana Advance Directives: No service: No Sexual orientation: Decline to Answer Physical Exam 2 Vital Signs: Vital Signs: Last Vital Signs Temp 97.8 F 09/13/23 11:35 Pulse 63 09/13/23 11:35 Resp 14 09/13/23 11:35 BP 95/52 L 09/13/23 11:35 Pulse Ox 100 09/13/23 11:35 O2 Del Method Room Air 09/13/23 11:35 BMI result Body Mass Index 18.0 VITAL SIGNS: Reviewed. GENERAL: Well developed, well nourished, in no acute distress. HEAD: Normocephalic/atraumatic EYES: PERRLA, EOMI EARS: Ext canals without abnormality NOSE: Nares patent bilateral OROPHARYNX: no oral lesions noted, posterior pharynx clear NECK: Supple, no adenopathy LUNGS: Normal breath sounds. No adventitious sounds or accessory muscle use. SpO2<100> CARDIOVASCULAR: Regular rate and rhythm without noted murmurs ABDOMEN: Soft, non-tender, non-distended with bowel sounds. MUSCULOSKELETAL: No tenderness, deformities, or effusions noted on gross inspection. EXTREMITIES: No cyanosis, clubbing or edema. SKIN: Inspection of the skin reveals no rashes NEUROLOGIC: Alert and oriented x 3. Strength and sensation to light touch were grossly intact x 4, cranial nerves 2-12 are grossly intact. Medical Decision Making Medical Decision Making MDM Narrative: 48-year-old male with history and clinical presentation, DDX: SI, polysubstance use Patient placed in physician observation because the patient needed more time for medical clearance and evaluation by the crisis team. At the time observation was started the patient's vital signs were stable, patient is alert and oriented, neuro: Nonfocal, CV RRR, lungs clear I reviewed all investigations and hematologic indices are chronically stable felt leukocytosis or left shift, there is a normocytic anemia no thrombocytopenia. Chemistry indices do not demonstrate any ARLETH or electrolyte/liver enzyme derangements. Urinalysis negative for UTI or hematuria and urine drug screen is positive for polysubstances. Awaiting salicylates/acetaminophen and otherwise patient is a dual diagnosis bed search. Differential Diagnosis Differential Diagnoses: The differential diagnosis associated with the presentation includes Please see the discussion above Admission/Observation Consideration of admission/observation: Escalation of care including admission/observation considered Please see the discussion above Consult Healthcare Provider Management of the patient was discussed with: Director Of Product Marketing Please see the discussion above Lab Data MDM Lab Attestation statement: I reviewed the patient's lab results. Please see the discussion above 09/13/23 12:37 09/13/23 12:37 Labs: Lab Results 09/13/23 09/13/23 Range/Units 11:57 12:37 WBC 5.7 (4.8-10.8) X10*3/uL RBC 3.88 L (4.60-5.80) X10*6/uL Hgb 11.3 L (14.0-18.0) g/dl Hct 33.1 L (42.0-52.0) % MCV 85.3 (80.0-98.0) fL MCH 29.1 (27.0-33.0) pg MCHC 34.1 (31.0-36.0) g/dl RDW 13.2 (11.0-16.0) % Plt Count 240 (160-400) X10*3/uL MPV 9.0 L (9.4-12.4) fL Immature Gran % (Auto) 0.2 (0.0-0.4) % Neut % (Auto) 53.3 (45-73) % Lymph % (Auto) 31.5 (20-40) % [place] % (Auto) 10.8 (2-11) % Eos % (Auto) 4.0 (0-4) % Baso % (Auto) 0.2 (0-2) % Lymph # (Auto) 1.8 (1.2-4.9) X10*3/uL [place] # (Auto) 0.6 (0.1-1.2) X10*3/uL Eos # (Auto) 0.2 (0.0-0.4) X10*3/uL Baso # (Auto) 0.0 (0.0-0.2) X10*3/uL Abs Immat Gran (auto) 0.01 (0.00-0.03) X10*3/uL Absolute Neuts (auto) 3.1 (2.0-8.3) x10*3/uL Absolute Nucleated RBC 0.000 (0.0-0.012) X10*3/uL Nucleated RBC % (auto) 0.0 (0.0-0.2) /100WBC Sodium 137 (135-145) mmol/L Potassium 4.2 (3.3-5.1) mmol/L Chloride 106 (96-108) mmol/L Carbon Dioxide 26 (22-29) mmol/L Anion Gap 9 L (12-20) BUN 24 H (9-16) mg/dL Creatinine 0.83 (0.5-1.4) mg/dL Estim Creat Clear Calc 95.6 Estimated GFR > 60 Random Glucose 81 (60-115) mg/dL Calcium 8.8 (8.4-10.2) mg/dL Total Bilirubin 0.4 (0.0-1.0) mg/dL AST 13 (5-37) U/L ALT 12 (0-40) U/L Alkaline Phosphatase 70 (39-117) U/L Total Protein 5.9 L (6.5-8.0) g/dL Albumin 3.6 (3.5-5.0) g/dL Urine Color Yellow Urine Appearance Clear Urine pH 5.5 (5.0-9.0) Ur Specific [place] 1.025 (1.005-1.025) Urine Protein Negative (Neg-Trace) mg/dL Urine Glucose (UA) Negative (Negative) mg/dL Urine Ketones Negative (Negative) mg/dL Urine Blood Negative (Negative) Urine Nitrite Negative (Negative) Ur Leukocyte Esterase Negative (Negative) Urine RBC 0-2 (0-2) /HPF Urine WBC 0-5 (0-5) /HPF Ur Squamous Epith Cells 0-2 (0-2) /HPF Urine Bacteria None Seen (None Seen) Hyaline Casts 0-2 (0-2) /LPF Urine Opiates Screen POSITIVE H (Not Detect) Urine Fentanyl Screen POSITIVE H (Not Detect) Ur Barbiturates Screen Not Detected (Not Detect) Ur Phencyclidine Scrn Not Detected (Not Detect) Ur Amphetamines Screen Not Detected (Not Detect) U Benzodiazepines Scrn Not Detected (Not Detect) Urine Cocaine Screen POSITIVE H (Not Detect) U Marijuana (THC) Screen Not Detected (Not Detect) External Record Review External record reviewed: Outpatient record, Prior outpatient labs and Prior outpatient radiology Chronic Conditions Patient?s care impacted by: Other Depression Social Determinants Patient?s care significantly limited by Social Determinants of Health including: Alcoholism and drug addiction in family Critical Care Time Critical Care Time Critical Care Time: Yes Total Critical Care Time: 45 Attestation: I personally attest to this time spent taking care of the patient. Discharge Plan Discharge Clinical Impression: Recurrent major depression, Suicide ideation, Polysubstance use disorder Patient Disposition: Still a Patient Prescriptions: No Action methadone [Methadose] 10 mg/mL Concentrate 70 mg PO DAILY Qty: 0 0RF Rx Instructions: Partial Fill upon patient request. quetiapine 25 mg Tablet 25 mg PO DAILY PRN (Reason: insomnia, anxiety) Qty: 0 0RF quetiapine 25 mg Tablet 25 mg PO 0900,1500 Qty: 90 0RF sertraline 100 mg Tablet 100 mg PO DAILY Qty: 30 0RF quetiapine 50 mg Tablet 50 mg PO DAILY@2230 Qty: 30 0RF folic acid 1 mg tablet 1 mg PO DAILY Qty: 30 0RF mirtazapine 15 mg tablet 15 mg PO BEDTIME Qty: 30 0RF multivitamin Tablet 1 tab PO DAILY Qty: 30 0RF thiamine HCl (vitamin B1) 100 mg tablet 100 mg PO DAILY Qty: 30 0RF bupropion HCl 75 mg tablet 75 mg PO DAILY Qty: 30 0RF Rx Instructions: administer 6 hours apart hydroxyzine HCl 25 mg tablet 25 mg PO TID PRN (Reason: anxiety) Interventions: [place]-Suicide Risk Severity Scale Last Done: 09/13/23 11:40 Print Language: Sammarinese
[2023-09-13 12:45] LABS: Basophils Percent Auto 0.2 % (0-2); Eosinophils Absolute Auto 0.2 X10*3/uL (0.0-0.4); Hematocrit 33.1 % (42.0-52.0); Hemoglobin 11.3 g/dl (14.0-18.0); Imm Gran Abs Auto 0.01 X10*3/uL (0.00-0.03); Imm Gran Pct Auto 0.2 % (0.0-0.4); Lymphocytes Absolute Auto 1.8 X10*3/uL (1.2-4.9); Lymphocytes Percent Auto 31.5 % (20-40); Mean Corpuscular HGB Conc 34.1 g/dl (31.0-36.0); Mean Corpuscular Hemoglobin 29.1 pg (27.0-33.0); Mean Corpuscular Volume 85.3 fL (80.0-98.0); Monocytes Absolute Auto 0.6 X10*3/uL (0.1-1.2); Monocytes Percent Auto 10.8 % (2-11); Neutrophils Absolute Auto 3.1 x10*3/uL (2.0-8.3); Neutrophils Percent Auto 53.3 % (45-73); Platelet Count 240 X10*3/uL (160-400); Red Blood Count 3.88 X10*6/uL (4.60-5.80); Red Cell Distribution Width 13.2 % (11.0-16.0); White Blood Count 5.7 X10*3/uL (4.8-10.8)
[2023-09-13 13:10] LABS: Alanine Aminotransferase 12 U/L (0-40); Albumin Level 3.6 g/dL (3.5-5.0); Anion Gap 9 (12-20); Aspartate Amino Transferase 13 U/L (5-37); Bilirubin Total 0.4 mg/dL (0.0-1.0); Blood Urea Nitrogen 24 mg/dL (9-16); Calcium 8.8 mg/dL (8.4-10.2); Carbon Dioxide 26 mmol/L (22-29); Chloride 106 mmol/L (96-108); Creatinine Clr Calc Pharmacy 95.6; Estimated Glomerular Filt Rate > 60; Glucose Random 81 mg/dL (60-115); Potassium 4.2 mmol/L (3.3-5.1); Sodium 137 mmol/L (135-145); Total Protein 5.9 g/dL (6.5-8.0)
[2023-09-13 13:20] LABS: Alkaline Phosphatase 70 U/L (39-117)
[2023-09-13 14:21] LABS: Acetaminophen LAB < 3 mcg/mL (<30); Salicylate < 5.0 mg/dL (15-30)
[2023-09-13] MEDS: QUEtiapine Fumarate 25 MG TABLET PO (15:41)
--- NOTE | 2023-09-13 15:59 | PC.NURSE ---
pt has been resting in bed in no apparent distress since presenting to the pod. pt has been calm/cooperative/keeping to himself. pt currently denies SI/HI at this time. medication administered per provider order. ekg performed/swabs obtained by tech so pt can be presented for inpatient admission. respirations remain even and unlabored. plan of care ongoing.
[2023-09-13 16:37] LABS: COVID-19 Test Negative (Negative); IDNOW Serial# 152EDE1D
[2023-09-13 22:15] VITALS: BP 125/70; PULSE 92; RESP 19; TEMP 36.4; O2SAT 95
[2023-09-13] MEDS: QUEtiapine Fumarate 50 MG TABLET PO (23:19)
[2023-09-13] MEDS: Mirtazapine 15 MG TABLET PO (23:19)
[2023-09-14 02:02] VITALS: BMI 19.1
--- NOTE | 2023-09-14 04:56 | PC.ADMIT ---
Pt is a 48 yo male admitted [place] [facility] and transferred from the Pod to M3 at 2215 on 09/13/23. Pt reports atrial fibrillation and presents with productive cough and symptoms of a cold. Pt denies etoh use for 22 years now. Pt reports a smoking history of 1 PPD for 32 years. Pt requests nicotine patch and nicotine lozenges. Pt reports use of heroin and cocaine on an every other day basis. Last use was hours prior to admission. Pt utox was + for fentanyl, opiates and cocaine. Pt states that precipitant to admission was that he was having increasing issues and angry outbursts between himself and his boss about his work ethic . 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 Pt presents as disheveled and dirty wearing johnnies. Pt very soft spoken and quiet. Pt was noted to have many missing teeth. Thought process is linear and clear. Provider wardrobe consultant AA was notified of admission and orders obtained. Pt placed on 15 minute safety checks. He reports feeling safe on the unit.
--- NOTE | 2023-09-14 07:05 | HE.PHANOTE ---
Methadone Verification Methadone dose 80 mg. Last dose given 09/13/23 @0843, per Martin STEPHENS at [facility]
--- NOTE | 2023-09-14 07:10 | PC.NURSE ---
During belongings being gone through, an unidentified but suspected contraband substance in folic acid rx bottle was discovered in pt belongings. Security called and took off unit. biodiesel operations manager on M3 called and informed/notified ED Pod biodiesel operations manager of finding and subsequent security confiscation. ED Perla aware.
[2023-09-14 07:30] VITALS: BP 123/85; PULSE 75; RESP 16; TEMP 36.6; O2SAT 99
[2023-09-14] MEDS: QUEtiapine Fumarate 25 MG TABLET PO ×2 (09:00→15:11)
[2023-09-14] MEDS: Multivitamin TABLET 1 TAB PO (09:00)
[2023-09-14] MEDS: Nicotine 21 MG PATCH.TD24 TRANSDERMA (09:00)
[2023-09-14] MEDS: Thiamine HCL 100 MG TABLET PO (09:01)
[2023-09-14] MEDS: Folic Acid 1 MG TABLET PO (09:01)
[2023-09-14] MEDS: buPROPion HCL 75 MG TABLET PO (09:01)
[2023-09-14] MEDS: Sertraline HCL 100 MG TABLET PO (09:01)
[2023-09-14 09:05] LABS: Alanine Aminotransferase 11 U/L (0-40); Albumin Level 3.3 g/dL (3.5-5.0); Alkaline Phosphatase 70 U/L (39-117); Anion Gap 10 (12-20); Aspartate Amino Transferase 10 U/L (5-37); Bilirubin Total 0.5 mg/dL (0.0-1.0); Blood Urea Nitrogen 16 mg/dL (9-16); Calcium 8.5 mg/dL (8.4-10.2); Carbon Dioxide 26 mmol/L (22-29); Chloride 108 mmol/L (96-108); Cholesterol 113 mg/dL (<200); Creatinine Clr Calc Pharmacy 113.7; Estimated Glomerular Filt Rate > 60; Glucose Fasting 82 mg/dL (60-99); HDL Cholesterol 38 mg/dL (>40); LDL Cholesterol Calculated 62 mg/dL (<100); Potassium 3.9 mmol/L (3.3-5.1); Sodium 140 mmol/L (135-145); Total Protein 5.6 g/dL (6.5-8.0); Triglycerides 66 mg/dL (<150)
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
--- NOTE | 2023-09-14 11:57 | MHC.CLN ---
NUTRITION CONSULT FOR LOW WEIGHT, MISSING TEETH. EMR REVIEWED. REVIEW OF WEIGHT HX SHOWS WEIGHT OVERALL STABLE X 8 MONTHS. BMI=19.1. LIKELY CONTRIBUTORS TO LOW WEIGHT INCLUDE POLYSUBSTANCE ABUSE AND HOMELESS STATUS. WILL ADD ENSURE BID TO INCREASE KCAL INTAKE. PROVIDES [address]ALS, [address] AVAILABLE NEEDED BY CONSULT.
[2023-09-14] MEDS: methADONE HCl 20 MG/2 ML ORAL.CONC 80 MG PO (15:12)
[2023-09-14] MEDS: hydrOXYzine HCL 25 MG TABLET PO ×2 (15:56→22:48)
[2023-09-14 20:05] VITALS: BP 124/67; PULSE 85; RESP 16; TEMP 36.9; O2SAT 97
[2023-09-14] MEDS: QUEtiapine Fumarate 50 MG TABLET PO (22:48)
[2023-09-14] MEDS: traZODone HCL 50 MG TABLET PO (22:48)
[2023-09-14] MEDS: Mirtazapine 15 MG TABLET PO (22:49)
[2023-09-15 06:00] VITALS: BP 128/72; PULSE 81; RESP 18; TEMP 36.7; O2SAT 100
[2023-09-15] MEDS: methADONE HCl 20 MG/2 ML ORAL.CONC 80 MG PO (08:54)
[2023-09-15] MEDS: Nicotine 21 MG PATCH.TD24 TRANSDERMA (08:54)
[2023-09-15] MEDS: Thiamine HCL 100 MG TABLET PO (08:56)
[2023-09-15] MEDS: Folic Acid 1 MG TABLET PO (08:56)
[2023-09-15] MEDS: Multivitamin TABLET 1 TAB PO (08:56)
[2023-09-15] MEDS: QUEtiapine Fumarate 25 MG TABLET PO ×2 (08:56→14:33)
[2023-09-15] MEDS: Sertraline HCL 100 MG TABLET PO (08:56)
[2023-09-15] MEDS: buPROPion HCL 75 MG TABLET PO (08:56)
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
--- NOTE | 2023-09-15 15:36 | PC.NURSE ---
Bobo asked for sweater and sweatpants, upon going through clothing, six small waxed packets stamped wild cat with a wild cat logo wrapped in a rubber band found in pants, a long with a one dollar bill. Security called to dispose of waxed paper packets. Dain Natarajan community development aide and [facility] Director notified via email, Alena Kyle and Dr. Po Solo notified via tiger text.
[2023-09-15] MEDS: QUEtiapine Fumarate 50 MG TABLET PO (16:26)
[2023-09-15] MEDS: hydrOXYzine HCL 25 MG TABLET PO (16:26)
[2023-09-15] MEDS: cloNIDine HCL 0.1 MG TABLET PO (20:25)
[2023-09-15 20:36] VITALS: BP 107/58; PULSE 72; RESP 16; TEMP 36.6; O2SAT 99
[2023-09-16] MEDS: Mirtazapine 15 MG TABLET PO ×2 (00:32→23:00)
[2023-09-16] MEDS: traZODone HCL 50 MG TABLET PO ×2 (00:32→23:03)
[2023-09-16] MEDS: QUEtiapine Fumarate 100 MG TABLET PO ×2 (00:33→23:00)
[2023-09-16 06:00] VITALS: BP 126/84; PULSE 75; RESP 14; TEMP 36.6; O2SAT 97
[2023-09-16] MEDS: Nicotine 21 MG PATCH.TD24 TRANSDERMA (10:16)
[2023-09-16] MEDS: methADONE HCl 20 MG/2 ML ORAL.CONC 80 MG PO (10:17)
[2023-09-16] MEDS: buPROPion HCL 75 MG TABLET PO (10:18)
[2023-09-16] MEDS: Folic Acid 1 MG TABLET PO (10:18)
[2023-09-16] MEDS: Thiamine HCL 100 MG TABLET PO (10:18)
[2023-09-16] MEDS: QUEtiapine Fumarate 50 MG TABLET PO ×2 (10:18→14:35)
[2023-09-16] MEDS: Sertraline HCL 100 MG TABLET PO (10:18)
[2023-09-16] MEDS: Multivitamin TABLET 1 TAB PO (10:19)
[2023-09-16 10:20] VITALS: BP 116/55; PULSE 91
[2023-09-16] MEDS: cloNIDine HCL 0.1 MG TABLET PO ×4 (10:23→23:03)
--- NOTE | 2023-09-16 11:42 | P.PNPSI_ITS ---
Subjective Subjective Date of Service: 09/16/23 Reason For Visit: Crisis Interim History: met with patient. Discussed with Nursing. Noted contra band found on the patient's property which was in storage yesterday. Today reports feeling a little bit better mood means. Feels that Seroquel dosing has been helpful. Clonidine as needed also helpful. No SI. No agitation or psychosis. Three day notice remains in place. Examined mom on patient's head, which has been there for almost 10 years and consistent with a lipoma. Educated can seek outpatient surgery evaluation if it is bothersome or he wants it removed. Medication Compliance: Yes Side effects from medications: No Attending Groups: No Review of Systems Acute medical concerns: No Review of Systems Review of Systems Yes all other systems are reviewed and are negative Mental Status Exam Mental Status Exam Narrative: Pleasant. Engage. Hospital clothing. Self-care limited. Less depressed. No SI. Less HI. No delusions or hallucinations. Insight and judgment fair Diagnostics Vital Signs (24Hr): Vital Signs - 24 hr 09/15/23 20:36 09/16/23 06:00 09/16/23 10:20 Temperature 97.9 F 97.9 F Pulse Rate 72 75 91 Respiratory Rate 16 14 Blood Pressure 107/58 L 126/84 116/55 L Pulse Oximetry 99 97 Oxygen Delivery Method Room Air Room Air BMI result Body Mass Index 19.1 Labs 09/13/23 12:37 09/14/23 08:32 Medications Medications Current Medications Acetaminophen (Acetaminophen 325 Mg Tablet) 650 mg PO Q6H PRN PRN Reason: Headache/Pain Mild Scale (1-3) Al Hydroxide/Mg Hydroxide (Magnesium Hydrox/Alum Hydrox 30 Ml Oral.Susp) 30 ml PO Q6H PRN PRN Reason: Heartburn/Nausea Bupropion HCl (Bupropion Hcl 75 Mg Tablet) 75 mg PO DAILY [facility] Last Admin: 09/16/23 10:18 Dose: 75 mg Clonidine HCl (Clonidine Hcl 0.1 Mg Tablet) 0.1 mg PO Q4H PRN; Protocol PRN Reason: Anxiety Last Admin: 09/16/23 10:23 Dose: 0.1 mg Folic Acid (Folic Acid 1 Mg Tablet) 1 mg PO DAILY [facility] Last Admin: 09/16/23 10:18 Dose: 1 mg Hydroxyzine HCl (Hydroxyzine Hcl 25 Mg Tablet) 25 mg PO TID PRN PRN Reason: anxiety Last Admin: 09/15/23 16:26 Dose: 25 mg Magnesium Hydroxide (Milk Of Magnesia 30 Ml Oral.Susp) 30 ml PO DAILY PRN PRN Reason: Constipation Methadone HCl (Methadone Hcl 20 Mg/2 Ml Oral.Conc) 80 mg PO DAILY [facility] Last Admin: 09/16/23 10:17 Dose: 80 mg Mirtazapine (Mirtazapine 15 Mg Tablet) 15 mg PO BEDTIME [facility] Last Admin: 09/16/23 00:32 Dose: 15 mg Multivitamins/Vitamin C (Multivitamin Tablet) 1 tab PO DAILY [facility] Last Admin: 09/16/23 10:19 Dose: 1 tab Nicotine (Nicotine 21 Mg Patch.Td24) 21 mg TRANSDERMA DAILY [facility] Last Admin: 09/16/23 10:16 Dose: 21 mg Nicotine Polacrilex (Nicotine Polacrilex 2 Mg Gum) 4 mg BUCCAL Q2H PRN PRN Reason: Nicotine Cravings Quetiapine Fumarate (Quetiapine Fumarate 100 Mg Tablet) 100 mg PO DAILY@2230 [facility] Last Admin: 09/16/23 00:33 Dose: 100 mg Quetiapine Fumarate (Quetiapine Fumarate 50 Mg Tablet) 50 mg PO 0900,1500 [facility] Last Admin: 09/16/23 10:18 Dose: 50 mg Sertraline HCl (Sertraline Hcl 100 Mg Tablet) 100 mg PO DAILY [facility] Last Admin: 09/16/23 10:18 Dose: 100 mg Thiamine HCl (Thiamine Hcl 100 Mg Tablet) 100 mg PO DAILY [facility] Last Admin: 09/16/23 10:18 Dose: 100 mg Trazodone HCl (Trazodone Hcl 50 Mg Tablet) 50 mg PO BEDTIME MRX1 PRN PRN Reason: Insomnia Last Admin: 09/16/23 00:32 Dose: 50 mg Allergies Allergies Allergy/AdvReac Type Severity Reaction Status Date / Time No Known Allergies Allergy Verified 09/13/23 11:36 [No Known Allergies*] Assessment & Plan Assessment & Plan (1) MDD (major depressive disorder), recurrent episode, severe: Status: Acute Code(s): F33.2 - Major depressive disorder, recurrent severe without psychotic features (2) Cocaine use disorder: Status: Acute Code(s): F14.10 - Cocaine abuse, uncomplicated (3) Opioid use disorder, severe, on maintenance therapy: Status: Acute Code(s): F11.20 - Opioid dependence, uncomplicated Plan Patient is a 48 year old male with hx of MDD, cocaine use d/o and opioid use d/o who presented to [facility] via ambulance d/t suicidal ideation secondary to increased depression and anxiety, substance use and homelessness. Plan: CV 15 minute safety checks continue home medications methadone dose verified by RN and clinic. addiction consult for hitting coach follow up referral for outpatient therapist and psychiatrist discharge planning 09/14: increase Seroquel to 50 mg twice daily and 100 mg at bedtime 09/15: no changes Reason for continued inpatient stay Substantial Risk for: harm to others Time Spent With Patient Time: Total time managing care of this patient today ____ minutes.
[2023-09-16 14:30] VITALS: BP 104/64; PULSE 78
[2023-09-16 18:50] VITALS: BP 106/57; PULSE 79
[2023-09-16] MEDS: hydrOXYzine HCL 25 MG TABLET PO (18:52)
[2023-09-16 21:24] VITALS: BP 90/62; PULSE 72; RESP 16; O2SAT 96
[2023-09-16 23:05] VITALS: BP 98/65; PULSE 64; RESP 16; O2SAT 98
--- NOTE | 2023-09-16 23:53 | PC.NURSE ---
Bobo was given clonidine PO prn for anxiety and Trazodone PO prn for sleep.
[2023-09-17 07:47] VITALS: BP 113/79; PULSE 73; RESP 16; TEMP 36.5; O2SAT 98
[2023-09-17] MEDS: Thiamine HCL 100 MG TABLET PO (08:38)
[2023-09-17] MEDS: Multivitamin TABLET 1 TAB PO (08:38)
[2023-09-17] MEDS: methADONE HCl 20 MG/2 ML ORAL.CONC 80 MG PO (08:38)
[2023-09-17] MEDS: QUEtiapine Fumarate 50 MG TABLET PO ×2 (08:38→14:22)
[2023-09-17] MEDS: Folic Acid 1 MG TABLET PO (08:38)
[2023-09-17] MEDS: Sertraline HCL 100 MG TABLET PO (08:38)
[2023-09-17] MEDS: buPROPion HCL 75 MG TABLET PO (08:38)
--- NOTE | 2023-09-17 09:11 | PM.EVENT ---
Event Note Date of Service: 09/17/23 Event Note: 48 year old male with history of opioid use disorder, persistent atrial fibrillation admitted to psychiatry with consult placed to hospitalist service for evaluation of Afib. The patient's atrial fibrillation is persistent. He is rate controlled. Blood pressures are controlled and soft overall. Would not add beta yolanda at this time. [id number] score is 0. No indication for anticoagulation given low risk. No further intervention or changes in management required at this time. Strongly recommend avoidance of cocaine. Should follow outpatient with PCP and cardiology for consideration of rhythm control medications vs cardioversion. Time Spent With Patient Time: Total time managing care of this patient today ____ minutes.
--- NOTE | 2023-09-17 10:09 | HO.PSYCHPN ---
Subjective Subjective Date of Service: 09/17/23 Reason For Visit: Crisis Subjective Notes: 3 Day Interim History: 48 yo reports feeling improved mood, dec si, and no withdrawl at present denies drug cravings- dec bp with clonidine prns Medication Compliance: Yes Side effects from medications: No Attending Groups: Intermittent Review of Systems Acute medical concerns: Yes afib that he didn't follow through on echo, ? if needs anticoag as it is chronic Medical Review of Systems: unchanged Mental Status Exam Mental Status Exam Patient Appearance: Well Grooomed and Appropriate Patient Orientation: Person, Place, Time and Situation Level of Consciousness: Awake Patient Behavior: Appropriate and Cooperative Mood Description: Calm and Sad Affect Description: Blunted Patient Cognition Impaired: No Ability to Follow Directions: Good Speech Pattern: Clear Hallucinations: None Thought Process: Intact Thought Content: positive for Intact and positive for Goal Oriented Depressive Symptoms: Muscle Tension and Back Pain (requests flexaril) Judgement: Fair Diagnostics Vital Signs (24Hr): Vital Signs - 24 hr 09/16/23 10:20 09/16/23 14:30 09/16/23 18:50 Temperature Pulse Rate 91 78 79 Respiratory Rate Blood Pressure 116/55 L 104/64 106/57 L Pulse Oximetry Oxygen Delivery Method 09/16/23 21:24 09/16/23 23:05 09/17/23 07:47 Temperature 97.7 F Pulse Rate 72 64 73 Respiratory Rate 16 16 16 Blood Pressure 90/62 98/65 113/79 Pulse Oximetry 96 98 98 Oxygen Delivery Method Room Air Room Air Room Air BMI result Body Mass Index 19.1 Labs 09/13/23 12:37 09/14/23 08:32 Medications Medications Current Medications Acetaminophen (Acetaminophen 325 Mg Tablet) 650 mg PO Q6H PRN PRN Reason: Headache/Pain Mild Scale (1-3) Al Hydroxide/Mg Hydroxide (Magnesium Hydrox/Alum Hydrox 30 Ml Oral.Susp) 30 ml PO Q6H PRN PRN Reason: Heartburn/Nausea Bupropion HCl (Bupropion Hcl 75 Mg Tablet) 75 mg PO DAILY [facility] Last Admin: 09/17/23 08:38 Dose: 75 mg Clonidine HCl (Clonidine Hcl 0.1 Mg Tablet) 0.1 mg PO Q4H PRN; Protocol PRN Reason: Anxiety Last Admin: 09/16/23 23:03 Dose: 0.1 mg Folic Acid (Folic Acid 1 Mg Tablet) 1 mg PO DAILY [facility] Last Admin: 09/17/23 08:38 Dose: 1 mg Hydroxyzine HCl (Hydroxyzine Hcl 25 Mg Tablet) 25 mg PO TID PRN PRN Reason: anxiety Last Admin: 09/16/23 18:52 Dose: 25 mg Magnesium Hydroxide (Milk Of Magnesia 30 Ml Oral.Susp) 30 ml PO DAILY PRN PRN Reason: Constipation Methadone HCl (Methadone Hcl 20 Mg/2 Ml Oral.Conc) 80 mg PO DAILY [facility] Last Admin: 09/17/23 08:38 Dose: 80 mg Mirtazapine (Mirtazapine 15 Mg Tablet) 15 mg PO BEDTIME [facility] Last Admin: 09/16/23 23:00 Dose: 15 mg Multivitamins/Vitamin C (Multivitamin Tablet) 1 tab PO DAILY [facility] Last Admin: 09/17/23 08:38 Dose: 1 tab Nicotine (Nicotine 21 Mg Patch.Td24) 21 mg TRANSDERMA DAILY [facility] Last Admin: 09/16/23 10:16 Dose: 21 mg Nicotine Polacrilex (Nicotine Polacrilex 2 Mg Gum) 4 mg BUCCAL Q2H PRN PRN Reason: Nicotine Cravings Quetiapine Fumarate (Quetiapine Fumarate 100 Mg Tablet) 100 mg PO DAILY@2230 [facility] Last Admin: 09/16/23 23:00 Dose: 100 mg Quetiapine Fumarate (Quetiapine Fumarate 50 Mg Tablet) 50 mg PO 0900,1500 [facility] Last Admin: 09/17/23 08:38 Dose: 50 mg Sertraline HCl (Sertraline Hcl 100 Mg Tablet) 100 mg PO DAILY [facility] Last Admin: 09/17/23 08:38 Dose: 100 mg Thiamine HCl (Thiamine Hcl 100 Mg Tablet) 100 mg PO DAILY [facility] Last Admin: 09/17/23 08:38 Dose: 100 mg Trazodone HCl (Trazodone Hcl 50 Mg Tablet) 50 mg PO BEDTIME MRX1 PRN PRN Reason: Insomnia Last Admin: 09/16/23 23:03 Dose: 50 mg Allergies Allergies Allergy/AdvReac Type Severity Reaction Status Date / Time No Known Allergies Allergy Verified 09/13/23 11:36 [No Known Allergies*] Assessment & Plan Assessment & Plan (1) MDD (major depressive disorder), recurrent episode, severe: Status: Acute Code(s): F33.2 - Major depressive disorder, recurrent severe without psychotic features (2) Cocaine use disorder: Status: Acute Code(s): F14.10 - Cocaine abuse, uncomplicated Assessment and Plan: ? re low weight and apt on ensure (3) Opioid use disorder, severe, on maintenance therapy: Status: Acute Code(s): F11.20 - Opioid dependence, uncomplicated Plan Patient is a 48 year old male with hx of MDD, cocaine use d/o and opioid use d/o who presented to [facility] via ambulance d/t suicidal ideation secondary to increased depression and anxiety, substance use and homelessness. Plan: CV 15 minute safety checks continue home medications methadone dose verified by RN and clinic. 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 further afib - Patient educated on: substance abuse and medical condition Informed Consent: understands Reason for continued inpatient stay Substantial Risk for: rapid decompensation Time Spent With Patient Time: Total time managing care of this patient today ____ minutes.
[2023-09-17] MEDS: Nicotine 21 MG PATCH.TD24 TRANSDERMA (10:50)
[2023-09-17] MEDS: hydrOXYzine HCL 25 MG TABLET PO ×2 (12:58→19:40)
[2023-09-17] MEDS: cloNIDine HCL 0.1 MG TABLET PO ×2 (12:58→19:40)
[2023-09-17] MEDS: Cyclobenzaprine HCl 5 MG TABLET PO ×2 (14:21→19:40)
[2023-09-17 19:40] VITALS: BP 122/59; PULSE 87; RESP 16; TEMP 36.9; O2SAT 98
--- NOTE | 2023-09-17 19:44 | PC.NURSE ---
Bobo was given clonidine PO prn and Atarax PO prn for elevated anxiety. Patient given Flexiril PO prn for generalized body aches.
[2023-09-17] MEDS: Mirtazapine 15 MG TABLET PO (22:52)
[2023-09-17] MEDS: QUEtiapine Fumarate 100 MG TABLET PO (22:53)
[2023-09-17] MEDS: traZODone HCL 50 MG TABLET PO (22:53)
[2023-09-18 07:40] VITALS: BP 118/79; PULSE 68; RESP 14; TEMP 36.3; O2SAT 97
[2023-09-18] MEDS: Folic Acid 1 MG TABLET PO (08:23)
[2023-09-18] MEDS: Multivitamin TABLET 1 TAB PO (08:24)
[2023-09-18] MEDS: Thiamine HCL 100 MG TABLET PO (08:24)
[2023-09-18] MEDS: QUEtiapine Fumarate 50 MG TABLET PO ×2 (08:24→14:05)
[2023-09-18] MEDS: Sertraline HCL 100 MG TABLET PO (08:24)
[2023-09-18] MEDS: buPROPion HCL 75 MG TABLET PO (08:24)
[2023-09-18] MEDS: methADONE HCl 20 MG/2 ML ORAL.CONC 80 MG PO (08:25)
[2023-09-18 10:31] VITALS: BP 124/57; PULSE 65
[2023-09-18 10:32] VITALS: BP 124/57
[2023-09-18] MEDS: cloNIDine HCL 0.1 MG TABLET PO ×3 (10:32→22:51)
[2023-09-18] MEDS: hydrOXYzine HCL 25 MG TABLET PO (10:32)
--- NOTE | 2023-09-18 11:24 | HO.PSYCHPN ---
Subjective Subjective Date of Service: 09/18/23 Reason For Visit: Crisis Subjective Notes: 3 Day Interim History: Reviewed with Dr. Sanchez. Pt reports feeling good today; pt stated, I'm not feeling depressed. I'm having some anxiety because when I leave here I want to sit down with my boss and talk to him about the money he owes me and my working conditions . Pt reports he is not having any craving to use . pt denies SI/HI/VH/AH. 3 day is up on 09/20/23. Medication Compliance: Yes Side effects from medications: No Attending Groups: Yes Review of Systems Constitutional: Reports as per HPI Eyes: Reports as per HPI Reports as per HPI Cardiovascular: Reports as per HPI Respiratory: Reports as per HPI Gastrointestinal: Reports as per HPI Genitourinary: Reports as per HPI Musculoskeletal: Reports as per HPI Skin/Breast: Reports as per HPI Reports as per HPI Psychiatric: Reports as per HPI Endocrine: Reports as per HPI Hematologic/Lymphatic: Reports as per HPI Allergic/Immunologic: Reports as per HPI Mental Status Exam Mental Status Exam Narrative: Pt is alert and oriented; behavior is cooperative and calm; dressed in casual attire; mood is described as good ; eye contact appropriate; Speech is normal rate, volume and prosody and not pressured; thought process is organized and goal directed; Thought content is on discharge; otherwise pertinent to relevant topics and without any delusional content, paranoid ideations or grandiosity; denies SI/HI/VH/AH. Diagnostics Vital Signs (24Hr): Vital Signs - 24 hr 09/17/23 19:40 09/18/23 07:40 09/18/23 10:31 Temperature 98.5 F 97.4 F Pulse Rate 87 68 65 Respiratory Rate 16 14 Blood Pressure 122/59 L 118/79 124/57 L Pulse Oximetry 98 97 Oxygen Delivery Method Room Air Room Air 09/18/23 10:32 Temperature Pulse Rate Respiratory Rate Blood Pressure 124/57 L Pulse Oximetry Oxygen Delivery Method BMI result Body Mass Index 19.1 Labs 09/13/23 12:37 09/14/23 08:32 Medications Medications Current Medications Acetaminophen (Acetaminophen 325 Mg Tablet) 650 mg PO Q6H PRN PRN Reason: Headache/Pain Mild Scale (1-3) Al Hydroxide/Mg Hydroxide (Magnesium Hydrox/Alum Hydrox 30 Ml Oral.Susp) 30 ml PO Q6H PRN PRN Reason: Heartburn/Nausea Bupropion HCl (Bupropion Hcl 75 Mg Tablet) 75 mg PO DAILY [facility] Last Admin: 09/18/23 08:24 Dose: 75 mg Clonidine HCl (Clonidine Hcl 0.1 Mg Tablet) 0.1 mg PO Q4H PRN; Protocol PRN Reason: Anxiety Last Admin: 09/18/23 10:32 Dose: 0.1 mg Cyclobenzaprine HCl (Cyclobenzaprine Hcl 5 Mg Tablet) 5 mg PO BID PRN PRN Reason: Muscle Spasm Last Admin: 09/17/23 19:40 Dose: 5 mg Folic Acid (Folic Acid 1 Mg Tablet) 1 mg PO DAILY [facility] Last Admin: 09/18/23 08:23 Dose: 1 mg Hydroxyzine HCl (Hydroxyzine Hcl 25 Mg Tablet) 25 mg PO TID PRN PRN Reason: anxiety Last Admin: 09/18/23 10:32 Dose: 25 mg Magnesium Hydroxide (Milk Of Magnesia 30 Ml Oral.Susp) 30 ml PO DAILY PRN PRN Reason: Constipation Methadone HCl (Methadone Hcl 20 Mg/2 Ml Oral.Conc) 80 mg PO DAILY [facility] Last Admin: 09/18/23 08:25 Dose: 80 mg Mirtazapine (Mirtazapine 15 Mg Tablet) 15 mg PO BEDTIME [facility] Last Admin: 09/17/23 22:52 Dose: 15 mg Multivitamins/Vitamin C (Multivitamin Tablet) 1 tab PO DAILY [facility] Last Admin: 09/18/23 08:24 Dose: 1 tab Nicotine (Nicotine 21 Mg Patch.Td24) 21 mg TRANSDERMA DAILY [facility] Last Admin: 09/18/23 10:05 Dose: Not Given Nicotine Polacrilex (Nicotine Polacrilex 2 Mg Gum) 4 mg BUCCAL Q2H PRN PRN Reason: Nicotine Cravings Quetiapine Fumarate (Quetiapine Fumarate 100 Mg Tablet) 100 mg PO DAILY@2230 [facility] Last Admin: 09/17/23 22:53 Dose: 100 mg Quetiapine Fumarate (Quetiapine Fumarate 50 Mg Tablet) 50 mg PO 0900,1500 [facility] Last Admin: 09/18/23 08:24 Dose: 50 mg Sertraline HCl (Sertraline Hcl 100 Mg Tablet) 100 mg PO DAILY [facility] Last Admin: 09/18/23 08:24 Dose: 100 mg Thiamine HCl (Thiamine Hcl 100 Mg Tablet) 100 mg PO DAILY [facility] Last Admin: 09/18/23 08:24 Dose: 100 mg Trazodone HCl (Trazodone Hcl 50 Mg Tablet) 50 mg PO BEDTIME MRX1 PRN PRN Reason: Insomnia Last Admin: 09/17/23 22:53 Dose: 50 mg Allergies Allergies Allergy/AdvReac Type Severity Reaction Status Date / Time No Known Allergies Allergy Verified 09/13/23 11:36 [No Known Allergies*] Assessment & Plan Assessment & Plan (1) MDD (major depressive disorder), recurrent episode, severe: Status: Acute Code(s): F33.2 - Major depressive disorder, recurrent severe without psychotic features (2) Cocaine use disorder: Status: Acute Code(s): F14.10 - Cocaine abuse, uncomplicated Assessment and Plan: ? re low weight and apt on ensure (3) Opioid use disorder, severe, on maintenance therapy: Status: Acute Code(s): F11.20 - Opioid dependence, uncomplicated Plan Patient is a 48 year old male with hx of MDD, cocaine use d/o and opioid use d/o who presented to [facility] via ambulance d/t suicidal ideation secondary to increased depression and anxiety, substance use and homelessness. Plan: CV 15 minute safety checks continue home medications methadone dose verified by RN and clinic. 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 further afib - 09/17: Pt reports feeling good today; pt stated, I'm not feeling depressed. I'm having some anxiety because when I leave here I want to sit down with my boss and talk to him about the money he owes me and my working conditions . Pt reports he is not having any craving to use . pt denies SI/HI/VH/AH. 3 day is up on 09/20/23. Continue current tx plan. Spoke to Daphne Minor APRN who suggested 5mg increase in methadone. Patient educated on: diagnosis, medication risk/benefits and substance abuse Informed Consent: understands Reason for continued inpatient stay Substantial Risk for: med/psych decompensation Time Spent With Patient Time: Total time managing care of this patient today _20___ minutes.
--- NOTE | 2023-09-18 12:20 | MHC.RECOVRN ---
Addendum entered by Emmanuelle Herrera 09/18/23 14:54: Met with pt to follow up after disaster recovery coordinator referral had been sent. Pt sitting in bed, awake, alert, engages in conversation. Pt reports being a loner and is looking forward to meeting with disaster recovery coordinator. Pt reports currently receiving methadone, 80 mg, through [facility]. Pt reports he had been receiving 100 mg approx 6 months ago and is hoping to titrate back to that dose in order to address cravings. Pt reports prior to admission using heroin/fentanyl, 1 bundle daily, [place]. Pt reports positive effect of methadone when at a stable dose. Pt denies other questions or concerns for t/w. Discussed with Daphne Minor APRN. Original Note: population health coach referral has been sent to [facility].
[2023-09-18 17:50] VITALS: BP 107/54
--- NOTE | 2023-09-18 18:51 | PC.NURSE ---
Pt BP was 78/52 then repeated on other arm 89/53 at 1535. Kasandra was notified clonidine withheld. BP rechecked 88/55 at 1606. Pt rechecked at 1735 BP was 107/54 Jessica aware and allowed PRN clondine.
[2023-09-18 19:40] VITALS: BP 101/58; PULSE 82; RESP 16; TEMP 37.2; O2SAT 97
[2023-09-18 22:51] VITALS: BP 102/63
[2023-09-18] MEDS: QUEtiapine Fumarate 100 MG TABLET PO (22:51)
[2023-09-18] MEDS: Mirtazapine 15 MG TABLET PO (22:51)
[2023-09-19 06:00] VITALS: BP 113/70; PULSE 67; RESP 16; TEMP 36.6; O2SAT 97
[2023-09-19] MEDS: buPROPion HCL 75 MG TABLET PO (08:43)
[2023-09-19] MEDS: Multivitamin TABLET 1 TAB PO (08:43)
[2023-09-19] MEDS: QUEtiapine Fumarate 50 MG TABLET PO ×2 (08:43→15:02)
[2023-09-19] MEDS: Thiamine HCL 100 MG TABLET PO (08:43)
[2023-09-19] MEDS: Folic Acid 1 MG TABLET PO (08:43)
[2023-09-19] MEDS: Sertraline HCL 100 MG TABLET PO (08:43)
[2023-09-19] MEDS: methADONE HCl 20 MG/2 ML ORAL.CONC 85 MG PO (08:44)
--- NOTE | 2023-09-19 09:45 | HO.PSYCHPN ---
Subjective Subjective Date of Service: 09/19/23 Reason For Visit: Crisis Subjective Notes: 3 Day Interim History: Reviewed with Dr. Sanchez. Pt reports feeling overall better ; pt stated, I'm feeling better, sleeping better and eating better. I'm not having any depression . Pt denies SI/HI/VH/AH. Pt reports he plans on following up with outpatient providers. Pt to be discharged on 3 day. Medication Compliance: Yes Side effects from medications: No Attending Groups: Intermittent Review of Systems Constitutional: Reports as per HPI Eyes: Reports as per HPI Reports as per HPI Cardiovascular: Reports as per HPI Respiratory: Reports as per HPI Gastrointestinal: Reports as per HPI Genitourinary: Reports as per HPI Musculoskeletal: Reports as per HPI Skin/Breast: Reports as per HPI Reports as per HPI Psychiatric: Reports as per HPI Endocrine: Reports as per HPI Hematologic/Lymphatic: Reports as per HPI Allergic/Immunologic: Reports as per HPI Mental Status Exam Mental Status Exam Narrative: Pt is alert and oriented; behavior is cooperative and calm; dressed in casual attire; mood is described as good ; eye contact appropriate; Speech is normal rate, volume and prosody and not pressured; thought process is organized and goal directed; Thought content is on discharge; otherwise pertinent to relevant topics and without any delusional content, paranoid ideations or grandiosity; denies SI/HI/VH/AH. Diagnostics Vital Signs (24Hr): Vital Signs - 24 hr 09/18/23 10:31 09/18/23 10:32 09/18/23 17:50 Temperature Pulse Rate 65 Respiratory Rate Blood Pressure 124/57 L 124/57 L 107/54 L Pulse Oximetry Oxygen Delivery Method 09/18/23 19:40 09/18/23 22:51 09/19/23 06:00 Temperature 99.0 F 97.8 F Pulse Rate 82 67 Respiratory Rate 16 16 Blood Pressure 101/58 L 102/63 113/70 Pulse Oximetry 97 97 Oxygen Delivery Method Room Air Room Air BMI result Body Mass Index 19.1 Labs 09/13/23 12:37 09/14/23 08:32 Medications Medications Current Medications Acetaminophen (Acetaminophen 325 Mg Tablet) 650 mg PO Q6H PRN PRN Reason: Headache/Pain Mild Scale (1-3) Al Hydroxide/Mg Hydroxide (Magnesium Hydrox/Alum Hydrox 30 Ml Oral.Susp) 30 ml PO Q6H PRN PRN Reason: Heartburn/Nausea Bupropion HCl (Bupropion Hcl 75 Mg Tablet) 75 mg PO DAILY [facility] Last Admin: 09/19/23 08:43 Dose: 75 mg Clonidine HCl (Clonidine Hcl 0.1 Mg Tablet) 0.1 mg PO Q4H PRN; Protocol PRN Reason: Anxiety Last Admin: 09/18/23 22:51 Dose: 0.1 mg Cyclobenzaprine HCl (Cyclobenzaprine Hcl 5 Mg Tablet) 5 mg PO BID PRN PRN Reason: Muscle Spasm Last Admin: 09/17/23 19:40 Dose: 5 mg Folic Acid (Folic Acid 1 Mg Tablet) 1 mg PO DAILY [facility] Last Admin: 09/19/23 08:43 Dose: 1 mg Hydroxyzine HCl (Hydroxyzine Hcl 25 Mg Tablet) 25 mg PO TID PRN PRN Reason: anxiety Last Admin: 09/18/23 10:32 Dose: 25 mg Magnesium Hydroxide (Milk Of Magnesia 30 Ml Oral.Susp) 30 ml PO DAILY PRN PRN Reason: Constipation Methadone HCl (Methadone Hcl 20 Mg/2 Ml Oral.Conc) 85 mg PO DAILY [facility] Last Admin: 09/19/23 08:44 Dose: 85 mg Mirtazapine (Mirtazapine 15 Mg Tablet) 15 mg PO BEDTIME [facility] Last Admin: 09/18/23 22:51 Dose: 15 mg Multivitamins/Vitamin C (Multivitamin Tablet) 1 tab PO DAILY [facility] Last Admin: 09/19/23 08:43 Dose: 1 tab Nicotine (Nicotine 21 Mg Patch.Td24) 21 mg TRANSDERMA DAILY [facility] Last Admin: 09/18/23 10:05 Dose: Not Given Nicotine Polacrilex (Nicotine Polacrilex 2 Mg Gum) 4 mg BUCCAL Q2H PRN PRN Reason: Nicotine Cravings Quetiapine Fumarate (Quetiapine Fumarate 100 Mg Tablet) 100 mg PO DAILY@2230 [facility] Last Admin: 09/18/23 22:51 Dose: 100 mg Quetiapine Fumarate (Quetiapine Fumarate 50 Mg Tablet) 50 mg PO 0900,1500 [facility] Last Admin: 09/19/23 08:43 Dose: 50 mg Sertraline HCl (Sertraline Hcl 100 Mg Tablet) 100 mg PO DAILY [facility] Last Admin: 09/19/23 08:43 Dose: 100 mg Thiamine HCl (Thiamine Hcl 100 Mg Tablet) 100 mg PO DAILY [facility] Last Admin: 09/19/23 08:43 Dose: 100 mg Trazodone HCl (Trazodone Hcl 50 Mg Tablet) 50 mg PO BEDTIME MRX1 PRN PRN Reason: Insomnia Last Admin: 09/17/23 22:53 Dose: 50 mg Allergies Allergies Allergy/AdvReac Type Severity Reaction Status Date / Time No Known Allergies Allergy Verified 09/13/23 11:36 [No Known Allergies*] Assessment & Plan Assessment & Plan (1) MDD (major depressive disorder), recurrent episode, severe: Status: Acute Code(s): F33.2 - Major depressive disorder, recurrent severe without psychotic features (2) Cocaine use disorder: Status: Acute Code(s): F14.10 - Cocaine abuse, uncomplicated Assessment and Plan: ? re low weight and apt on ensure (3) Opioid use disorder, severe, on maintenance therapy: Status: Acute Code(s): F11.20 - Opioid dependence, uncomplicated Plan Patient is a 48 year old male with hx of MDD, cocaine use d/o and opioid use d/o who [place] [facility] [place] d/t suicidal ideation secondary to increased depression and anxiety, substance use and homelessness. Plan: CV 15 minute safety checks continue home medications methadone dose verified by RN and clinic. 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 further afib - 09/17: Pt reports feeling good today; pt stated, I'm not feeling depressed. I'm having some anxiety because when I leave here I want to sit down with my boss and talk to him about the money he owes me and my working conditions . Pt reports he is not having any craving to use . pt denies SI/HI/VH/AH. 3 day is up on 09/20/23. Continue current tx plan. Spoke to Daphne Minor APRN who suggested 5mg increase in methadone. 09/18: Pt reports feeling overall better ; pt stated, I'm feeling better, sleeping better and eating better. I'm not having any depression . Pt denies SI/HI/VH/AH. Pt reports he plans on following up with outpatient providers. Pt to be discharged on 3 day. Patient educated on: diagnosis, medication risk/benefits and substance abuse Informed Consent: understands Reason for continued inpatient stay Substantial Risk for: stable for discharge Time Spent With Patient Time: Total time managing care of this patient today _20___ minutes.
[2023-09-19 11:15] VITALS: BP 105/55
[2023-09-19] MEDS: cloNIDine HCL 0.1 MG TABLET PO ×3 (11:15→22:37)
[2023-09-19] MEDS: hydrOXYzine HCL 25 MG TABLET PO (13:08)
[2023-09-19 18:42] VITALS: BP 131/83
[2023-09-19 20:00] VITALS: BP 109/58; PULSE 83; RESP 16; TEMP 36.9; O2SAT 98
[2023-09-19] MEDS: QUEtiapine Fumarate 100 MG TABLET PO (22:31)
[2023-09-19] MEDS: Mirtazapine 15 MG TABLET PO (22:31)
[2023-09-19 22:37] VITALS: BP 132/73
[2023-09-20 07:00] VITALS: BMI 20.2
[2023-09-20 08:00] VITALS: BP 138/75; PULSE 74; RESP 16; TEMP 36.4; O2SAT 97
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
[2023-09-20] MEDS: methADONE HCl 20 MG/2 ML ORAL.CONC 85 MG PO (09:37)
[2023-09-20] MEDS: buPROPion HCL 75 MG TABLET PO (09:39)
[2023-09-20] MEDS: Sertraline HCL 100 MG TABLET PO (09:39)
[2023-09-20] MEDS: QUEtiapine Fumarate 50 MG TABLET PO (09:40)
[2023-09-20] MEDS: Folic Acid 1 MG TABLET PO (09:40)
[2023-09-20] MEDS: Thiamine HCL 100 MG TABLET PO (09:40)
[2023-09-20] MEDS: Multivitamin TABLET 1 TAB PO (09:40)
[2023-09-20 09:48] VITALS: BP 138/75
[2023-09-20] MEDS: cloNIDine HCL 0.1 MG TABLET PO (09:48)
== END 2023-09-20 11:30 | disposition home or self-care (01) | DRG 751 ==
LOC: HO.ED 13:00 → HO.PADLT16 16:43
PROVIDERS: Admitting Provider Registered Nurse; Emergency Provider Student in an Organized Health Care Education/Training Program; Responsible Provider Registered Nurse; Visit Provider Psychiatry & Neurology Psychiatry
DX: F33.2 Major depressive disorder, recurrent severe without psychotic features (principal); R45.851 Suicidal ideations; I48.19 Other persistent atrial fibrillation; F11.20 Opioid dependence, uncomplicated; F17.210 Nicotine dependence, cigarettes, uncomplicated; F14.10 Cocaine abuse, uncomplicated; Z20.822 Contact with and (suspected) exposure to COVID-19; Z71.6 Tobacco abuse counseling; Z79.899 Other long term (current) drug therapy
CPT/HCPCS: 36415; 80053; 80061; 80143; 80179; 80307; 81001; 85025; 87635; 93005; 99285; S9485

== ENCOUNTER → 2023-09-13 15:53 | Outpatient (BNV) | payer OTHER, SELFPAY | PROVIDERS: Admitting Provider Registered Nurse; Emergency Provider Student in an Organized Health Care Education/Training Program; Responsible Provider Registered Nurse; Visit Provider Internal Medicine Cardiovascular Disease | DX: I48.0 Paroxysmal atrial fibrillation (principal) | CPT/HCPCS: 93010 ==

== ENCOUNTER → 2023-09-13 16:07 | Outpatient (BNV) | payer OTHER, SELFPAY | PROVIDERS: Admitting Provider Registered Nurse; Emergency Provider Student in an Organized Health Care Education/Training Program; Responsible Provider Registered Nurse; Visit Provider Psychiatry & Neurology Psychiatry | DX: F33.2 Major depressive disorder, recurrent severe without psychotic features (principal); F14.10 Cocaine abuse, uncomplicated; F11.20 Opioid dependence, uncomplicated | CPT/HCPCS: 90792; 99231; 99232; 99238 ==